=== PATIENT | male | born 1940 | race Caucasian/White ===

== ENCOUNTER 2017-12-02 17:16 | Inpatient (IN) ==
--- OUTSIDE RECORDS SUMMARY | 2017-12-02 20:15 | External Medical Summary ---
:1940 Author Organization eClinicalWorks Care Team Providers Name Role Phone Osbaldo Fernández Provider Role Unavailable Allergies, Adverse Reactions, Alerts Substance Reaction Event Type N.K.D.A. Info Not Available Non Drug Allergy Problems Problem Type Condition Code Onset Dates Condition Status Problem Diastasis recti M62.08 Active Problem Degenerative arthritis of knee, M17.0 Active bilateral Problem ED (erectile dysfunction) N52.9 Active Assessment Essential (primary) hypertension I10 Active Assessment Type 2 diabetes mellitus without E11.9 Active complications Problem Essential (primary) hypertension I10 Active Problem Hyperlipidemia E78.5 Active Problem Type 2 diabetes mellitus without E11.9 Active complications Problem Other malaise R53.81 Active Problem Gout M10.9 Active Problem Dietary counseling and surveillance Z71.3 Active Problem Nocturia R35.1 Active Medications Medication Code Code Instructions Start End Status Dosage System Date Date Viagra [facility] [address]-05 50 MG Orally take one Once a day tablet by mouth every day as needed Cyclobenzaprine [facility] [address]-95 10 MG Orally Jan 20, 1 tablet HCl Three times a 2013 day Aspirin [facility] [address]-04 81mg oral qD Dec 04, (one) 2005 qD Metformin HCl [facility] 23078988414 1000 Orally take 1 Twice a day tablet by mouth twice daily. Lisinopril [facility] 61329126195 20 TAKE 1 TABLET BY MOUTH EVERY DAY Allopurinol [facility] 12019439177 300 TAKE 1 TABLET BY MOUTH EVERY DAY Amaryl [facility] [address]-92 2 MG Orally BID TAKE 1/2 TABLET BY MOUTH TWICE A DAY Glimepiride [facility] [address]-45 2 TAKE ONE-HALF TABLET BY MOUTH TWICE A DAY Procedures Procedure Coding System Code Date HgB A1C CPT-4 15094 Sep 01, 2015 OFFICE VISITEST PT CPT-4 04697 Sep 01, 2015 BASIC CHEM 8 CPT-4 52723 Sep 01, 2015 Vital Signs Date/Time: Sep 01, 2015 Blood Pressure Systolic 125 mm Hg Height 68 in Weight 231 lbs BMI 35.12 Index Cardiac Monitoring Heart Rate 66 /min Blood Pressure Diastolic 78 mm Hg Results Name Result Date Reference Range Unit Abnormality Flag BASIC CHEM Summary Purpose eClinicalWorks Submission
--- OUTSIDE RECORDS SUMMARY | 2017-12-02 20:15 | External Medical Summary ---
[...] bilateral Problem ED (erectile dysfunction) N52.9 Active Problem Essential (primary) hypertension I10 Active Problem Hyperlipidemia E78.5 Active Problem Type 2 diabetes mellitus without E11.9 Active complications Problem Other malaise R53.81 Active Problem Gout M10.9 Active Problem Dietary counseling and surveillance Z71.3 Active Problem Nocturia R35.1 Active Assessment ED (erectile dysfunction) N52.9 Active Assessment Essential (primary) hypertension I10 Active Assessment Type 2 diabetes mellitus without E11.9 Active complications Medications Medication Code Code Instructions Start End Status Dosage System Date Date Amaryl [facility] [address]-55 2 MG Orally BID TAKE 1/2 TABLET BY MOUTH TWICE A DAY Lisinopril [facility] 81612319652 20 TAKE 1 TABLET BY MOUTH EVERY DAY Aspirin [facility] [address]-73 81mg oral qD Dec 04, (one) 2005 qD Viagra [facility] [address]-95 50 MG Orally take one Once a day tablet by mouth every day as needed Metformin HCl [facility] 02848124694 1000 Orally take 1 Twice a day tablet by mouth twice daily. Allopurinol [facility] 07782791522 300 TAKE 1 TABLET BY MOUTH EVERY DAY Cyclobenzaprine [facility] [address]-89 10 MG Orally Jan 20, tablet HCl Three times a 2013 day Procedures Procedure Coding System Code Date HgB A1C CPT-4 42841 Dec 02, 2015 OFFICE VISITEST PT CPT-4 88005 Dec 02, 2015 BASIC CHEM 8 CPT-4 03650 Dec 02, 2015 Vital Signs Date/Time: Dec 02, 2015 Blood Pressure Systolic 134 mm Hg Height 68 in Weight 231 lbs BMI 35.12 Index Cardiac Monitoring Heart Rate 68 /min Blood Pressure Diastolic 82 mm Hg Results Name Result Date Reference Range Unit Abnormality Flag BASIC CHEM ----CALCIUM 9.3 [id number] 8.7-10.3 MG/DL ----CO2 27 [id number] 23-31 MMOL/L ----CHLORIDE 100 [id number] 96-108 MMOL/L ----POTASSIUM 4.3 [id number] 3.3-5.1 MMOL/L ----GLUCOSE 122 [id number] 60-99 MG/DL H ----BUN 19 [id number] 8-23 MG/DL ----CREATININE 0.9 [id number] 0.5-1.2 MG/DL ----SODIUM 141 [id number] 133-145 MMOL/L HbA1C ----%A1C 6.2 [id number] 4.0-6.0 % H Summary Purpose eClinicalWorks Submission
--- OUTSIDE RECORDS SUMMARY | 2017-12-02 20:15 | External Medical Summary ---
:1940 Author Organization eClinicalWorks Care Team Providers Name Role Phone Osbaldo Fernández Provider Role Unavailable Allergies, Adverse Reactions, Alerts Substance Reaction Event Type N.K.D.A. 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 Problem Type 2 diabetes mellitus without E11.9 Active complications Assessment Memory loss R41.3 Active Problem Diastasis recti M62.08 Active Problem ED (erectile dysfunction) N52.9 Active Assessment Essential (primary) hypertension I10 Active Problem Degenerative arthritis of knee, M17.0 Active bilateral Assessment Other malaise R53.81 Active Problem Gout M10.9 Active Medications Medication Code Code Instructions Start End Status Dosage System Date Date Lisinopril [facility] 70818663532 20 TAKE 1 TABLET BY MOUTH EVERY DAY Amaryl [facility] [address]-24 2 MG Orally BID TAKE 1/2 TABLET BY MOUTH TWICE A DAY Allopurinol [facility] 15859210563 300 TAKE 1 TABLET BY MOUTH EVERY DAY Viagra [facility] [address]-67 100 MG Orally 1/2 TAB Once a day Aspirin [facility] [address]-53 81mg oral qD Dec 04 (one) 2005 qD Metformin HCl [facility] 60041026238 1000MG Orally TAKE ONE BID TABLET BY MOUTH TWICE DAILY Procedures Procedure Coding System Code Date OFFICE VISITEST PT CPT-4 26049 Jul 24, 2016 Vital Signs Date/Time: Jul 24, 2016 Blood Pressure Systolic 128 mm Hg Height 68 in Weight 234 lbs BMI 35.58 Index Cardiac Monitoring Heart Rate 66 /min Blood Pressure Diastolic 76 mm Hg Results No Known Results Summary Purpose eClinicalWorks Submission
--- OUTSIDE RECORDS SUMMARY | 2017-12-02 20:15 | External Medical Summary ---
:1940 Author Organization eClinicalWorks Care Team Providers Name Role Phone Osbaldo Fernández Provider Role Unavailable Allergies No Known Allergies Problems Problem Type Condition Code Onset Dates [...] diabetes mellitus without E11.9 Active complications Problem Diastasis recti M62.08 Active Problem ED (erectile dysfunction) N52.9 Active Problem Degenerative arthritis of knee, M17.0 Active bilateral Problem Gout M10.9 Active Medications No Known Medications Results No Known Results Summary Purpose eClinicalWorks Submission
--- OUTSIDE RECORDS SUMMARY | 2017-12-02 20:15 | External Medical Summary ---
:1940 Author Organization eClinicalWorks Care Team Providers Name Role Phone Osbaldo Fernández Provider Role Unavailable Allergies, Adverse Reactions, Alerts Substance Reaction Event Type N.K.D.A. Info Not Available Non Drug Allergy Problems Problem Type Condition Code Onset Dates Condition Status Problem Osteoarthrosis, unspecified whether 715.96 Active generalized or localized, lower leg Problem Other general symptoms 780.99 Active Problem Gout, unspecified 274.9 Active Assessment Bronchitis, not specified as acute 490 Active or chronic Problem Erectile dysfunction 607.84 Active Problem Diabetes mellitus without mention of 250.00 Active complication, type II or unspecified type, not stated as uncontrolled Problem Diastasis recti 728.84 Active Problem Dietary surveillance and counseling V65.3 Active Problem Nocturia 788.43 Active Problem Hypertension, Unspecified 401.9 Active Problem Hyperlipidemia, Other and 272.4 Active unspecified Medications Medication Code Code Instructions Start End Status Dosage System Date Date Aspirin [facility] [address]-37 81mg oral qD Dec 04, (one) 2005 qD Promethazine-Codei [facility] [address]-85 6.25-10 MG/5ML February 23- tsp ne Orally every 6 2014 hrs Lisinopril [facility] 38770527196 20 MG TAKE 1 TABLET BY MOUTH EVERY DAY Amaryl [facility] [address]-19 2 MG Orally BID TAKE 1/2 TABLET BY MOUTH TWICE A DAY Zithromax Z-Peter [facility] [address]-93 250 MG Orally February 2 tablet Once a day 2014 on the first day, then 1 tablet daily for 4 days Viagra [facility] [address]-71 50 MG Orally take one Once a day tablet by mouth every day as needed Metformin HCl [facility] 08213468482 1000 MG TAKE 1 TABLET BY MOUTH TWICE A DAY Cyclobenzaprine [facility] [address]-96 10 MG Orally Jan 20, tablet HCl Three times a 2013 day Allopurinol [facility] 94273137725 300 MG TAKE 1 TABLET BY MOUTH EVERY DAY Glimepiride [facility] [address]-06 2 TAKE ONE-HALF TABLET BY MOUTH TWICE A DAY Procedures Procedure Coding System Code Date OFFICE VISITEST PT CPT-4 89117 February 28, 2015 Vital Signs Date/Time: February 28, 2015 Blood Pressure Systolic 126 mm Hg Height 68 in Weight 233 lbs BMI 35.42 Index Cardiac Monitoring Heart Rate 72 /min Blood Pressure Diastolic 86 mm Hg Results No Known Results Summary Purpose eClinicalWorks Submission
--- OUTSIDE RECORDS SUMMARY | 2017-12-02 20:15 | External Medical Summary | Continuity of Care Document ---
:1940 Author Organization [facility] Allergies Active Description Code Type Severity Reaction Onset Reported/ Identified Relationship Clinical to Patient Status Yes No Known No Drug Unknown N/A 09/05/2009 Drug Known Aller Intolerances Drug gy Intol eranc es Yes No Known No Drug Unknown N/A 09/06/2009 Intolerances Known Aller Intol gy eranc es Yes No Known No Drug Unknown N/A 01/01/2017 Allergies Known Aller Aller gy gies Medications There is no data. Problems There is no data. Procedures There is no data. Results There is no data. Encounters ACCT Visit Discharge Status Pt. Type Provider Facility Loc./Unit Complaint No. Date/Time [id number] 01/01/2017 01/01/2017 DIS Emergency [facility] [id number] 13:11:00 16:30:00 , [facility]
--- OUTSIDE RECORDS SUMMARY | 2017-12-02 20:15 | External Medical Summary ---
:1940 Author Organization eClinicalWorks Care Team Providers Name Role Phone Osbaldo Fernández Provider Role Unavailable Allergies, Adverse Reactions, Alerts Substance Reaction Event Type N.K.D.A. 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 Problem Depression F32.9 Active Problem Hyperlipidemia E78.5 Active Problem Dietary counseling and surveillance Z71.3 Active Problem Type 2 diabetes mellitus without E11.9 Active complications Problem Essential (primary) hypertension I10 Active Assessment Other malaise R53.81 Active Problem Diastasis recti M62.08 Active Assessment Anxiety F41.9 Active Problem ED (erectile dysfunction) N52.9 Active Assessment Depression F32.9 Active Problem Degenerative arthritis of knee, M17.0 Active bilateral Medications Medication Code Code Instructions Start End Status Dosage System Date Date Lisinopril [facility] 04665586194 20 TAKE 1 TABLET BY MOUTH EVERY DAY Amaryl [facility] [address]-02 2 MG Orally BID TAKE 1/2 TABLET BY MOUTH TWICE A DAY Sertraline HCl [facility] [address]-95 50 MG Orally Jun 25, 1 tablet Once a day 2015 Allopurinol [facility] 91637180051 300 TAKE 1 TABLET BY MOUTH EVERY DAY Viagra [facility] [address]-32 100 MG Orally 1/2 TAB Once a day Aspirin [facility] [address]-11 81mg oral qD Dec 04 (one) 2005 qD Metformin HCl [facility] 60409308857 1000MG Orally TAKE ONE BID TABLET BY MOUTH TWICE DAILY Procedures Procedure Coding System Code Date OFFICE VISITEST PT CPT-4 21653 Jun 25, 2016 Vital Signs Date/Time: Jun 25, 2016 Blood Pressure Systolic 130 mm Hg Height 68 in Weight 234 lbs BMI 35.58 Index Cardiac Monitoring Heart Rate 68 /min Blood Pressure Diastolic 80 mm Hg Results No Known Results Summary Purpose eClinicalWorks Submission
--- OUTSIDE RECORDS SUMMARY | 2017-12-02 20:15 | External Medical Summary ---
:1940 [facility] Care Team Providers Name Role Phone Osbaldo Fernández Provider Role Unavailable Allergies, Adverse Reactions, Alerts Substance Reaction Event Type N.K.D.A. Info Not Available Non Drug Allergy Problems Problem Type Condition ICD-9 Code Onset Dates Condition Status Problem Osteoarthrosis, unspecified 715.96 Active whether generalized or localized, lower leg Problem Other general symptoms 780.99 Active Problem Gout, unspecified 274.9 Active Problem Erectile dysfunction 607.84 Active Assessment Diastasis recti 728.84 Active Problem Diabetes mellitus without 250.00 Active mention of complication, type II or unspecified type, not stated as uncontrolled Problem Diastasis recti 728.84 Active Problem Dietary surveillance and V65.3 Active counseling Problem Nocturia 788.43 Active Problem Hypertension, Unspecified 401.9 Active Problem Hyperlipidemia, Other and 272.4 Active unspecified Assessment Gout, unspecified 274.9 Active Assessment Other general symptoms 780.99 Active Assessment Erectile dysfunction 607.84 Active Assessment Osteoarthrosis, unspecified 715.96 Active whether generalized or localized, lower leg Assessment Hyperlipidemia, Other and 272.4 Active unspecified Assessment Hypertension, Unspecified 401.9 Active Assessment Nocturia 788.43 Active Assessment Diabetes mellitus without 250.00 Active mention of complication, type II or unspecified type, not stated as uncontrolled Assessment Dietary surveillance and V65.3 Active counseling Assessment Adult Wellness Exam V70.0 Active Medications Medication Code Code Instructions Start End Status Dosage System Date Date Lisinopril [facility] 27867167835 20 MG TAKE 1 TABLET BY MOUTH EVERY DAY Aspirin [facility] [address]-28 81mg oral qD Dec 04, () 2005 qD Cyclobenzaprine [facility] [address]-52 10 MG Orally Jan 20, tablet HCl Three times a 2013 day Allopurinol [facility] 84057006739 300 MG TAKE 1 TABLET BY MOUTH EVERY DAY Amaryl [facility] [address]-07 2 MG Orally BID TAKE 1/2 TABLET BY MOUTH TWICE A DAY Glimepiride [facility] [address]-22 2 TAKE ONE-HALF TABLET BY MOUTH TWICE A DAY Viagra [facility] [address]-02 50 MG Orally take one Once a day tablet by mouth every day as needed Viagra [facility] [address]-40 50 MG TAKE ONE TABLET BY MOUTH EVERY DAY NEEDED Metformin HCl [facility] 05059119762 1000 MG TAKE 1 TABLET BY MOUTH TWICE A DAY Procedures Procedure Coding System Code Date URIC ACID CPT-4 15109 February 14, 2015 PREV MED SEREST 65 CPT-4 62762 February 14, 2015 COMP PROFILE CPT-4 55602 February 14, 2015 HgB A1C CPT-4 82225 February 14, 2015 CBC CPT-4 47812 February 14, 2015 T4 CPT-4 45780 February 14, 2015 URINALYSIS CPT-4 70333 February 14, 2015 TSH CPT-4 35258 February 14, 2015 CREATININE; OTHER SOURCE CPT-4 82053 February 14, 2015 MICROALBUMIN URINE CPT-4 34280 February 14, 2015 PSA,TOTAL CPT-4 20235 February 14, 2015 LIPID PROFILE CPT-4 13174 February 14, 2015 Vital Signs Date/Time: February 14, 2015 Blood Pressure Systolic 125 mm Hg Height 68 in Weight 233 lbs BMI 35.42 Index Cardiac Monitoring Heart Rate 66 /min Blood Pressure Diastolic 75 mm Hg Results No Known Results Summary Purpose eClinicalWorks Submission
--- NOTE | 2017-12-02 20:16 | Emergency Department Report ---
Medical Clearance HPI - General Chief complaint: Medical Clearance Stated complaint: [facility] clearance Time Seen by Provider: 12/02/17 20:12 Source: old records reviewed Mode of arrival: ambulatory Limitations: no limitations - History of Present Illness HPI Narrative: Pt presents for medical clearance for admission to [facility]. Staff report pt has been increasingly confused over the last several weeks and pts behavior has become erratic complaint: medical clearance requested Onset (ago): week(s) Reason for Medical Clearance: medical condition, psychiatric condition Alleged Intoxication: No Associated Symptoms: denies other symptoms Treatments Prior to Arrival: none Home medications: Home Medications Medication Instructions Recorded Confirmed Allopurinol [Zyloprim] 300 mg PO DAILY 12/02/17 12/02/17 Aspirin *EC* [Ecotrin] 81 mg PO DAILY 12/02/17 12/02/17 Donepezil [Aricept] 5 mg PO DAILY 12/02/17 12/02/17 Ibuprofen 200 mg PO Q6HR 12/02/17 12/02/17 Lisinopril [Prinivil] 20 mg PO DAILY 12/02/17 12/02/17 Metformin HCl [Metformin HCl] 1,000 mg PO BID 12/02/17 12/02/17 Allergies/Adverse reactions: Allergies Allergy/AdvReac Type Severity Reaction Status Date / Time No Known Allergies Allergy Verified 12/02/17 19:59 Review of Systems Limitations: ROS unobtainable due to patient's medical condition PFS Patient Stated Medical History Dementia Yes Hypertension Yes Diabetes Mellitus Type 2 Yes Physical Exam - Limitations Limitations: altered mental status - General General appearance: alert - Normal Exams: Head:: Normocephalic without trauma Eyes:: Pupils are PERRLA w/ EOMI Neck:: Full range of motion, without adenopathy Chest/Respirations:: Clear all corbett, with good airflow, and symmetry bilaterally Cardiovascular:: Regular rate and rhythm, without murmur or gallop, Pulses 2+ all extremities, capillary refill, <2 seconds all extremities Abdomen:: Bowel sounds positive, soft, non-tender, non-distended Musculoskeletal:: No tenderness, or deformity noted, good range of motion, all extremities Integumentary:: No rashes Neurological:: Patient is alert (oreiented to self only), cranial nerves, motor/ sensory/cerebellar, exams w/o gross deficits, to observation Psychiatric:: Patient exhibits, appropriate attention, emotion and affect ( cooperative with care) Course Vital Signs Temperature 97.8 F 12/02/17 19:45 Pulse Rate 85 12/02/17 19:45 Respiratory Rate 20 12/02/17 19:45 Blood Pressure 162/85 H 12/02/17 19:45 Pulse Oximetry 95 12/02/17 19:45 Temperature 97.8 F 12/08/17 08:00 Pulse Rate 79 12/08/17 08:00 Respiratory Rate 20 12/08/17 08:00 Blood Pressure 121/67 12/08/17 08:00 Pulse Oximetry 98 12/08/17 08:00 Medical Clearance - MDM Narrative Medical decision making narrative: Labs reviewed. [facility] - Differential Diagnosis Likely: urinary tract infection (depression, acute psychosis, anxiety) - Lab Data Attestation: I reviewed the patient's lab results. Result diagrams: 12/02/17 20:13 12/02/17 20:13 Lab Results 12/02/17 12/02/17 12/02/17 Range/Units 20:13 20:13 21:03 WBC 7.4 (4.5-11.0) T/MM3 RBC 4.44 L (4.50-5.90) M/MM3 Hgb 13.3 L (13.5-17.5) GM/DL Hct 40.1 L (41-53) % MCV 90.3 (80-100) UM3 MCH 30.0 (26-34) UUG MCHC 33.2 (31-37) GM/DL RDW Std Deviation 45.0 (36.9-50.2) FL Plt Count 230 (130-400) T/MM3 MPV 11.7 (9.4-12.4) UM3 Immature Gran % (Auto) 0.0 (0.0-0.5) % Neut % (Auto) 71.9 H (33-66) % Lymph % (Auto) 17.6 L (23-45) % [place] % (Auto) 7.4 (0-9.0) % Eos % (Auto) 2.8 (0-4) % Baso % (Auto) 0.3 (0-2) % Neut # (Auto) 5.3 (1.8-7.7) T/MM3 Lymph # (Auto) 1.3 (1-4.8) T/MM3 [place] # (Auto) 0.6 (0-0.8) T/MM3 Eos # (Auto) 0.2 (0-0.5) T/MM3 Baso # (Auto) 0.0 (0-0.2) T/MM3 Abs Immat Gran (auto) 0.00 (0.00-0.03) T/MM3 Turbidity < 20 (0-20) Sodium 140 (134-144) MEQ/L Potassium 4.3 (3.6-5) MEQ/L Chloride 100 (98-107) MEQ/L Carbon Dioxide 28 (22-30) MEQ/L Anion Gap 12 (5-15) MEQ/L BUN 20.0 (9-20) MG/DL Creatinine 1.0 (0.8-1.5) MG/DL GFR Calculation 73 BUN/Creatinine Ratio 20 (6-26) RATIO Glucose 203 H (75-110) MG/DL Calculated Osmolality 278 (261-280) MOSM/KG Calcium 9.1 (8.4-10.2) MG/DL Total Bilirubin 0.30 (0.20-1.30) MG/DL Icterus Index < 2 (0-7) AST 16 L (17-59) U/L ALT 25 (21-72) U/L Alkaline Phosphatase 150 H (38-126) U/L Total Protein 7.0 (6.3-8.2) G/DL Albumin 4.1 (3.5-5.0) G/DL Globulin 2.9 (2.4-3.6) G/DL Albumin/Globulin Ratio 1.4 (1.1-2.2) RATIO Specimen Hemolysis < 15 (0-25) Ur Collection Type Urine, catheter Urine Color Yellow (YELLOW) Urine Clarity Clear Urine pH 7.0 (5.0-8.0) Ur Specific [place] 1.010 L (1.015-1.025) Urine Protein Negative (NEGATIVE) Urine Glucose (UA) Negative (NEGATIVE) Urine Ketones Negative (NEGATIVE) Urine Occult Blood Negative (NEGATIVE) Urine Nitrate Negative (NEGATIVE) Urine Bilirubin Negative (NEGATIVE) Urine Urobilinogen 0.2 (NORMAL) EU/DL Ur Leukocyte Esterase Negative (NEGATIVE) Urinalysis Comment Microscopic not ind. Disposition Clinical Impression: geriatric medication evaluation, Dementia with behavioral disturbance Disposition: 67 To [facility] Condition: Stable - Seen By: midlevel
[2017-12-02] MEDS ORDERED: HALOPERIDOL 5 MG/ML INJECTION IM PRN (21:48)
[2017-12-02] MEDS ORDERED: HALOPERIDOL 0.5 MG TABLET PO PRN (21:48)
[2017-12-02] MEDS ORDERED: LORazepam 0.5 MG TABLET PO PRN (21:48)
[2017-12-03 01:14] VITALS: BMI 34.4
[2017-12-03] MEDS ORDERED: DONEPEZIL 5 MG TABLET PO SCH (09:00)
[2017-12-03] MEDS ORDERED: GLUCOSE ORAL GEL 40% 37.5gm PO PRN (09:29)
--- NOTE | 2017-12-03 09:41 | History & Physical Report ---
History of Present Illness Date: 12/03/17 Chief complaint: dementia with behavioral disorders, failure of self care HPI: Mr. Trent Pelayo is a very pleasant 77-year-old male resident from [facility]. He presented to [facility] ED on 12/02/16 for evaluation of cognitive decline, failure of self care, and increased withdrawal and isolation over the past few months. Staff at the facility also reportedly addressed concerns about his behaviors becoming more erratic. Due to his dementia, history is limited. Extensive review of his prior medical records was performed.Upon arrival in the ED, he was medically stable. Labs were unremarkable. He was admitted to [facility] for further psychiatric evaluation and treatment. Hospitalist service was consulted for medical management as he has a history of diabetes, hypertension, gout and degenerative joint disease. He is seen this morning in his room, while resting in his bed. He denies any concerns or complaints including no chest pain, shortness of breath, abdominal pain, nausea, vomiting, diarrhea, dysuria or pain. He states that he did not sleep very well because "everyone was up all night". Review of Systems ROS unobtainable: due to mental status (dementia) All systems PM: 10-point ROS was reviewed, no additional remarkable complaints except - Constitutional Constitutional: Absent: chills, fever(s), lethargy, weakness - EENMT Eyes: Absent: diplopia, loss of vision Ears: Absent: ear pain Balance: Absent: falling to one side Nose: Absent: nosebleeds Mouth/Throat: Absent: sore throat, changes in swallowing - Cardiovascular Cardiovascular: Absent: chest pain, palpitations, syncope, dyspnea on exertion, edema Vascular: Absent: pallor of an extermity, pedal edema - Respiratory Respiratory: Absent: cough, dyspnea, hemoptysis, dyspnea on exertion, wheezing, pain on inspiration - Gastrointestinal Gastrointestinal: Absent: abdominal pain, constipation, diarrhea, melena, nausea , vomiting - Genitourinary Genitourinary: Absent: dysuria, flank pain, hematuria - Musculoskeletal Musculoskeletal: Absent: abnormal gait, back pain, deformity - Integumentary/Breasts Integumentary: Absent: lesions, rash - Neurological Neurological: Present: memory loss. Absent: abnormal gait, convulsions, dizziness, focal weakness - Psychiatric Psychiatric: Present: behavioral changes. Absent: anxiety, hallucinations - Endocrine Endocrine: Absent: heat intolerance, palpitations - Hematologic/Lymphatic Hematologic/Lymphatic: Absent: easy bruising - Allergic/Immunologic Allergic/Immunologic: Absent: seasonal rhinorrhea Past Medical History Patient Stated Medical History Dementia. Hypertension. Diabetes Mellitus Type 2. Gout. Degenerative joint disease. Obesity. Surgical History: 1. Tonsillectomy - as a child. 2. Appendectomy - as a young adult. 3. Left hip replacement - 2008, Dr. Zuleta. 4. Right hip replacement - 2009, Dr. Zuleta. 5. Colonscopy - 2007, due in 2018. Family History Updates: Limited due to patient's dementia. He reports his mother had a history of diabetes and states that his father was healthy. - Social History Smoking status: Former smoker (quit 40 years ago) Substance use type: does not use Alcohol intake frequency: holidays/special occasions only Last drink: unknown Housing: other ([facility]) Household members: none service: Yes ([employer]) Current occupational status: retired Does patient use chewing tobacco?: No Current residence: [facility] Social history: PCP - Dr. Osbaldo Fernández. Medications Home Medications Medication Instructions Recorded Confirmed Type Allopurinol [Zyloprim] 300 mg PO DAILY 12/02/17 12/02/17 History Aspirin *EC* [Ecotrin] 81 mg PO DAILY 12/02/17 12/02/17 History Donepezil [Aricept] 5 mg PO DAILY 12/02/17 12/02/17 History Ibuprofen 200 mg PO Q6HR 12/02/17 12/02/17 History Lisinopril [Prinivil] 20 mg PO DAILY 12/02/17 12/02/17 History Metformin HCl [Metformin HCl] 1,000 mg PO BID 12/02/17 12/02/17 History Allergies Allergy/AdvReac Type Severity Reaction Status Date / Time No Known Allergies Allergy Verified 12/02/17 19:59 Exam Vital Signs: Temperature 97.5 F 12/03/17 08:00 Pulse Rate 69 12/03/17 08:00 Respiratory Rate 18 12/03/17 08:00 Blood Pressure 145/70 H 12/03/17 08:00 Pulse Oximetry 100 12/03/17 08:00 Height/Weight/BMI: Height 5 ft 5 in Weight 412 lb 4.231 oz Body Mass Index 34.4 Comments: resting in bed, awake; very pleasant with bright affect; word finding difficulty noted. - Constitutional Present: no acute distress, well nourished, well developed, obese, cooperative - Routine HEENT Exam Head: Present: normocephalic, atraumatic Eye: Present: PERRL. Absent: conjunctival icterus ENT: Present: mucous membranes moist, oropharynx clear - Routine Neck Exam Present: supple, full ROM, trachea midline - Routine Chest/Breast/Axilla Exam Chest wall: Absent: pacemaker - Routine Respiratory Exam Present: CTA bilaterally. Absent: rhonchi, stridor, wheezes, crackles - Routine Cardiovascular Exam Present: RRR, S1, S2, no murmur - Routine Abdominal Exam Present: soft, normoactive bowel sounds, non distended, non tender - Routine Extremities Exam Present: no edema, non tender, full ROM, pulses intact Comments: ambulates easily without assistance. - Routine Back/Spine/Pelvis Exam Back/Spine: Present: full ROM. Absent: vertebral tenderness - Routine Skin Exam Present: intact, dry, warm. Absent: jaundice Comments: afebrile. - Routine Neurological Exam Present: alert (orienated to person only), moving all extremities, hearing grossly intact speech is slowed with some word finding difficulties. - Routine Psychiatric Exam Present: normal affect, cooperative. Absent: auditory hallucinations, visual hallucinations Results - Labs CBC & Chem 7: 12/02/17 20:13 12/02/17 20:13 Assessment and Plan (1) Dementia with behavioral disturbance Current visit: Yes Status: Acute Assessment and Plan: Assessment: Dementia with behavioral disturbance and failure to perform self care. Hypertension. Diabetes Mellitus Type 2. Gout. Degenerative joint disease. Obesity. Plan - 12/03/17 (Admission) Agree with admission to [facility] for psychiatric evaluation and treatment. Hospitalist service consulted for medical management. Provide safe and supportive cares with PRN medications as indicated per Dr. Tamez and team. Continue home medications. Med reconciliation noted to be missing home Amaryl. Will start Amaryl 1mg po BID for treatment of his DM. A1c in 09/2017 was elevated at 7.2 per prior records. Monitor BGMs closely. Sliding scale insulin PRN as indicated and monitor closely for hypoglycemia. Continue home lisinopril for hypertension - blood pressure controlled and will continue to monitor. Labs obtained on admission revealed mild amenia - hgb 13.3. B12 and folate pending. Recommend completing admission work up including CXR, CT head, TSH, UA and prealbumin. Will monitor labs periodically throughout admission. Upon discharge, patient's care will be returned to PCP, Dr. Osbaldo Fernández. Resuscitation Status: Full Code - Time spent with patient Time with patient PN: 70 minutes - Physician Narrative Physician: Laura Young MD Narrative: Date: 12/03/17 Time: 1934 I have independently evaluated and examined this patient. I reviewed the chart, the patient's history, and the NUCLEAR INSTRUCTOR/PA's documented findings as above. We discussed and formulated the assessment and plan as above with additions as below: Mr. Pelayo was seen in the day room after dinner. He denied concerns; did not remember who his doctor was or report any chronic medical conditions. He denied dyspnea, pain, or lightheadedness. Respirations are nonlabored and breath sounds clear Regular cardiac rhythm, S1-S2 EOMI, facial structure symmetric, tongue midline [employer] Counter Assistant symmetric/strong, no drift of the upper extremities, raises each leg off the floor independently and hold against gentle resistance Normal motor tone, no tremors Sensation intact to light touch 4 extremities Laboratory data reviewed-unremarkable other than hyperglycemia consistent with known diagnosis of diabetes and minor acidic anemia. Renal function good and permits continued use of metformin. Agree with plans outlined above by Aislinn. Thank you for allowing us to participate in the care of this patient. Hospital Course Summary Disclaimer: The visit summary below is not to be considered part of the above Progress Note. Hospital Course: Plan - 12/03/17 (Admission) Agree with admission to [facility] for psychiatric evaluation and treatment. Hospitalist service consulted for medical management. Provide safe and supportive cares with PRN medications as indicated per Dr. Tamez and team. Continue home medications. Med reconciliation noted to be missing home Amaryl. Will start Amaryl 1mg po BID for treatment of his DM. A1c in 09/2017 was elevated at 7.2 per prior records. Monitor BGMs closely. Sliding scale insulin PRN as indicated and monitor closely for hypoglycemia. Continue home lisinopril for hypertension - blood pressure controlled and will continue to monitor. Labs obtained on admission revealed mild amenia - hgb 13.3. B12 and folate pending. Recommend completing admission work up including CXR, CT head, TSH, UA and prealbumin. Will monitor labs periodically throughout admission. Upon discharge, patient's care will be returned to PCP, Dr. Osbaldo Fernández.
[2017-12-03] MEDS ORDERED: GLIMEPIRIDE 2 MG TABLET PO SCH (09:45)
[2017-12-03] MEDS: IBUPROFEN 200 MG TABLET PO SCH ×4 (10:49→20:47)
[2017-12-03] MEDS: ALLOPURINOL 300 MG TABLET PO SCH (10:50)
[2017-12-03] MEDS: METFORMIN 1,000 MG TABLET PO SCH ×2 (10:51→17:46)
[2017-12-03] MEDS: ASPIRIN *EC* 81 MG TABLET PO SCH (10:52)
[2017-12-03] MEDS: LISINOPRIL 20 MG TABLET PO SCH (10:52)
[2017-12-03] MEDS: GLIMEPIRIDE 1 MG TABLET PO SCH ×2 (10:54→17:46)
--- NOTE | 2017-12-03 17:55 | 24 Hour Neuropsychiatic Eval ---
Date of Admission: 12/02/17 21:48 Chief complaint: Self-care failure History of Present Illness: Patient is a 77-year-old male who was admitted to [facility] on with the consent of his DPOA, Arti Rodriguez. Patient has been living in an [place] apartment at [facility] and has not been taking his medications, performing hygienic cares, etc. and thus he was admitted for self-care failure. On interview, patient was very pleasant but oriented to self only, and had significant word-finding difficulties with some expressive aphasia. He was not oriented to the situation or able to provide a reliable history. He did say he' s "had too many things on his mind" but described his mood as happy most of the time. He feels that he is eating well, sleeping well, etc. He is not able to tell me anything about his own medial history. 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 He does voluntarily report several symptoms of PTSD (hypervigilance, flashbacks, nightmares) in the past but feels that he is managing better now. Patient denies any SI, HI or AVH. No paranoia evident. Patient denies any past psychiatric history. He reports stopping cigarettes a long time ago and reports drinking heavily at one point in his life, but not recently. The validity of this is not clear. He denies any other drug use. SLUMS was 05/24 upon admission. Notes: [facility] made phone call to patient's DPOA-HC (Arti Rodriguez). She was able to provide some information based on the 20 year relationship she and her have had with the patient. She said the patient's daughter, Sherry, was his DPOA-HC but she mailed a letter to staff at [facility] in [place] where pt. had been residing in [facility]. She stated she no longer wanted to serve as his DPOA-HC. Arti Rodriguez knew patient needed help so she agreed to be first agent and her is second agent on DPOA-HC. She stated that because of the severity of his memory problems and because of his age, she wanted to sign the DNR on behalf of the patient. She has some paperwork with personal history. She knows pt. was born in [place]. He was for 6 yeas to his first and he had his only child during that time. After their divorce, he again for 30+ years and she is now . Pt. graduated from high school and also has a business degree from [employer]. 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 Arti has never known the patient to be involved in any rastafarian activities. She also reports she has never known him to have any problems with abusing drugs or alcohol. She reports that once she became his legal union representative, she found unopened mail in his mailbox from months back. He had been living in an [place] apt. at [facility] in [place] for over one year but was at risk of being evicted because of lack of payment for his rent. He has never had any past psychiatric treatment. 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 Dementia: Memory Impairment, Aphasia, Poor Executive Functioning Reviewed: Home Medications, Allergies, Current Lab Data, Imaging Reports, Nursing Notes [facility] Patient Stated Medical History Dementia Yes Hypertension Yes Diabetes Mellitus Type 2 Yes Other Musculoskeletal Yes: gout Surgical History: 1. Tonsillectomy - as a child. 2. Appendectomy - as a young adult. 3. Left hip replacement - 2008, Dr. Zuleta. 4. Right hip replacement - 2009, Dr. Zuleta. 5. Colonscopy - 2007, due in 2018. Family History: Not able to obtain reliable family history from patient. 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 Does patient use chewing tobacco?: No Current residence: [facility] Social history: Strengths: very pleasant personality, denies feeling depressed, has supportive DPOA, possible VA benefits Review of Systems All systems: reviewed and no additional remarkable complaints except as stated - Constitutional Constitutional: Present: as per HPI - EENMT Eyes: Present: other (poor vision - patient feels he needs an eye exam) Ears: Absent: ear pain Balance: Absent: falling to one side Nose: Absent: nosebleeds Mouth/Throat: Absent: sore throat, changes in swallowing - Cardiovascular Vascular: Absent: pallor of an extermity, pedal edema - Genitourinary Genitourinary: Present: difficulty urinating (sometimes per patient). Absent: dysuria, flank pain, hematuria - Neurological Neurological: Present: memory loss - Psychiatric Psychiatric: Present: as per HPI, other (word-finding difficulty) Mental Status Exam Vitals: Last Vital Signs Temp 97.6 F 12/03/17 15:39 Pulse 69 12/03/17 15:39 Resp 16 12/03/17 15:39 BP 116/65 12/03/17 15:39 Pulse Ox 98 12/03/17 15:39 Height: 1.65 m Weight: 96 kg - Mental Status Exam Muscle Strength/Tone: Normal Dressing: Casual Grooming: Fair Attitude: Cooperative Motor Activity: Retardation Eye Contact: Good Speech: Slowed Volume: Normal Rhythm: Other (Expressive aphasia, word-finding diffiulties) Sensory: Alert Orientation: Disoriented to time, Disoriented to place, Disoriented to situation , Oriented to person Mood: Euthymic Affect: Bright, Relaxed Rate of Thoughts: Delayed Thought Organization: Confused Associations: Illogical Abstract Reasoning: Impaired, concrete Thought Content: Normal Perception/Psychotic: Perception Normal Language: Naming Impaired Fund of Knowledge: Poor fund of knowledge Memory: Poor-immediate, Poor-recent, Poor-remote Suicidal Ideation: Denies Homicidal Ideation: Denies Insight: Impaired Judgement: Impaired Impulse Control: Good - Laboratory Result Diagrams: 12/02/17 20:13 12/02/17 20:13 Laboratory Results - last 24 hr 12/03/17 12/03/17 12/03/17 05:51 10:35 14:20 Glucometer 161 246 114 12/03/17 17:04 Glucometer 80 Assessment and Plan (1) Major neurocognitive disorder Current visit: Yes Status: Acute (2) Self-care deficit for medication management Current visit: Yes Status: Acute (3) Hypertension Current visit: Yes Status: Acute (4) DMII (diabetes mellitus, type 2) Qualifiers: Diabetes mellitus complication status: with ophthalmic complications Current visit: Yes Status: Acute (5) Obesity Current visit: Yes Status: Acute (6) Degenerative joint disease Current visit: Yes Status: Acute Admit to [facility] for evaluation and stabilization; maintain safety and elopement precautions. Standard labs upon admission: CBC, CMP, TSH, UA, Vitamin B12 and folate levels. Will obtain further collateral information from patient's DPOA and discuss any recommendations for medication management. Monitor mood and behavior on the unit.
[2017-12-03] MEDS: DONEPEZIL 5 MG TABLET PO SCH (20:47)
[2017-12-04] MEDS: IBUPROFEN 200 MG TABLET PO SCH ×5 (04:18→20:22)
[2017-12-04] MEDS: GLIMEPIRIDE 1 MG TABLET PO SCH ×2 (08:11→17:55)
[2017-12-04] MEDS: LISINOPRIL 20 MG TABLET PO SCH (08:12)
[2017-12-04] MEDS: ALLOPURINOL 300 MG TABLET PO SCH (08:12)
[2017-12-04] MEDS: ASPIRIN *EC* 81 MG TABLET PO SCH (08:12)
[2017-12-04] MEDS: METFORMIN 1,000 MG TABLET PO SCH ×2 (08:12→17:55)
--- NOTE | 2017-12-04 16:00 | Neuropsych Progress Note ---
[facility] Subjective Date: 12/04/17 - Sujective/Severity of Illness Medications: Allopurinol (Zyloprim) 300 mg PO DAILY [facility] Last Admin: 12/04/17 08:12 Dose: 300 mg Aspirin (Ecotrin) 81 mg PO DAILY [facility] Last Admin: 12/04/17 08:12 Dose: 81 mg Donepezil HCl (Aricept) 5 mg PO HS [facility] Last Admin: 12/03/17 20:47 Dose: 5 mg Glimepiride (Amaryl) 1 mg PO BIDWM [facility] Last Admin: 12/04/17 08:11 Dose: 1 mg Glucose (Glutose 15) 37.5 gm PO PRN PRN PRN Reason: Hypoglycemia Haloperidol (Haldol) 0.5 mg PO Q6H PRN PRN Reason: Extreme agitation Haloperidol Lactate (Haldol) 0.5 mg IM Q6H PRN PRN Reason: Extreme agitation Ibuprofen (Motrin) 200 mg PO Q6HR [facility] Last Admin: 12/04/17 08:18 Dose: Not Given Insulin Aspart (Novolog) 1 - 5 unit SQ SS PRN; Protocol PRN Reason: Hyperglycemia Lisinopril (Prinivil) 20 mg PO DAILY [facility] Last Admin: 12/04/17 08:12 Dose: 20 mg Lorazepam (Ativan) 0.5 mg PO Q6H PRN PRN Reason: Extreme agitation Lorazepam (Ativan Inj) 0.5 mg IM Q6H PRN PRN Reason: Extreme agitation Metformin HCl (Glucophage) 1,000 mg PO BIDBS [facility] Last Admin: 12/04/17 08:12 Dose: 1,000 mg Subjective: Patient seen and chart reviewed. Case discussed with treatment team. On interview, patient is quite pleasant and seems to be in a good mood. He continues to struggle with expressive aphasia and significant word-finding difficulty. Patient denies any SI, HI or AVH. Patient reports that he is feeling well physically. Nursing staff report patient has been pleasant, with no significant behavioral difficulties in the past 24 hours. He has been adherent with his medications. Patient slept 5.25 hours overnight. VSS. Patient is eating well. Psychotropic PRNs required in the past 24 hours: none. Start Time: 09:00 Stop Time: 09:20 Mental Status Exam Vitals: Last Vital Signs Temp 97.0 F 12/04/17 08:00 Pulse 99 12/04/17 08:00 Resp 16 12/04/17 08:00 BP 147/81 H 12/04/17 08:00 Pulse Ox 98 12/04/17 08:00 Height: 1.65 m Weight: 96 kg - Mental Status Exam Muscle Strength/Tone: Normal Dressing: Casual Grooming: Fair Attitude: Cooperative Motor Activity: Retardation Eye Contact: Good Speech: Slowed Volume: Normal Rhythm: Other (Expressive aphasia, word-finding diffiulties) Orientation: Disoriented to time, Disoriented to place, Disoriented to situation , Oriented to person Mood: Euthymic Affect: Relaxed Rate of Thoughts: Delayed Thought Organization: Confused Associations: Illogical Abstract Reasoning: Impaired, concrete Thought Content: Normal Perception/Psychotic: Perception Normal Language: Naming Impaired Fund of Knowledge: Poor fund of knowledge Memory: Poor-immediate, Poor-recent, Poor-remote Suicidal Ideation: Denies Homicidal Ideation: Denies Insight: Impaired Judgement: Impaired Impulse Control: Good - Laboratory Result Diagrams: 12/02/17 20:13 12/02/17 20:13 Laboratory Results - last 24 hr 12/03/17 12/03/17 12/04/17 17:04 20:15 06:19 Glucometer 80 127 100 Prealbumin TSH 12/04/17 12/04/17 12/04/17 07:18 10:06 14:11 Glucometer 215 158 Prealbumin 17.2 L TSH 1.35 Assessment and Plan (1) Major neurocognitive disorder Current visit: Yes Status: Acute (2) Self-care deficit for medication management Current visit: Yes Status: Acute (3) Hypertension Current visit: Yes Status: Acute (4) DMII (diabetes mellitus, type 2) Qualifiers: Diabetes mellitus complication status: with ophthalmic complications Current visit: Yes Status: Acute (5) Obesity Current visit: Yes Status: Acute (6) Degenerative joint disease Current visit: Yes Status: Acute Continue current care; patient requires significant assistance with cares, med compliance, etc. Would like to ensure that BS have stabilized on current regimen. Will plan to discuss use of Namenda, Aricept with DPOA though memory enhancers not shown to be beneficial if dementia is solely vascular. SW looking into placement options for necessary level of care with DPOA. Hospital Course Summary Disclaimer: The visit summary below is not to be considered part of the above Progress Note. Hospital Course: Plan - 1/9/18 (Admission) Agree with admission to [facility] for psychiatric evaluation and treatment. Hospitalist service consulted for medical management. Provide safe and supportive cares with PRN medications as indicated per Dr. Tamez and team. Continue home medications. Med reconciliation noted to be missing home Amaryl. Will start Amaryl 1mg po BID for treatment of his DM. A1c in 09/2017 was elevated at 7.2 per prior records. Monitor BGMs closely. Sliding scale insulin PRN as indicated and monitor closely for hypoglycemia. Continue home lisinopril for hypertension - blood pressure controlled and will continue to monitor. Labs obtained on admission revealed mild amenia - hgb 13.3. B12 and folate pending. Recommend completing admission work up including CXR, CT head, TSH, UA and prealbumin. Will monitor labs periodically throughout admission. Upon discharge, patient's care will be returned to PCP, Dr. Osbaldo Fernández.
[2017-12-04] MEDS: DONEPEZIL 5 MG TABLET PO SCH (20:22)
[2017-12-05] MEDS: GLIMEPIRIDE 1 MG TABLET PO SCH ×2 (08:01→17:57)
[2017-12-05] MEDS: ASPIRIN *EC* 81 MG TABLET PO SCH (08:02)
[2017-12-05] MEDS: LISINOPRIL 20 MG TABLET PO SCH (08:02)
[2017-12-05] MEDS: METFORMIN 1,000 MG TABLET PO SCH ×2 (08:02→17:57)
[2017-12-05] MEDS: ALLOPURINOL 300 MG TABLET PO SCH (08:02)
[2017-12-05] MEDS: IBUPROFEN 200 MG TABLET PO SCH ×4 (10:15→20:36)
--- NOTE | 2017-12-05 18:16 | Neuropsych Progress Note ---
[facility] Subjective Date: 12/06/17 - Sujective/Severity of Illness Medications: Allopurinol (Zyloprim) 300 mg PO DAILY [facility] Last Admin: 12/05/17 08:02 Dose: 300 mg Aspirin (Ecotrin) 81 mg PO DAILY [facility] Last Admin: 12/05/17 08:02 Dose: 81 mg Donepezil HCl (Aricept) 5 mg PO HS [facility] Last Admin: 12/04/17 20:22 Dose: 5 mg Glimepiride (Amaryl) 1 mg PO BIDWM [facility] Last Admin: 12/05/17 17:57 Dose: 1 mg Glucose (Glutose 15) 37.5 gm PO PRN PRN PRN Reason: Hypoglycemia Haloperidol (Haldol) 0.5 mg PO Q6H PRN PRN Reason: Extreme agitation Haloperidol Lactate (Haldol) 0.5 mg IM Q6H PRN PRN Reason: Extreme agitation Ibuprofen (Motrin) 200 mg PO Q6HR [facility] Last Admin: 12/05/17 15:14 Dose: Not Given Insulin Aspart (Novolog) 1 - 5 unit SQ SS PRN; Protocol PRN Reason: Hyperglycemia Lisinopril (Prinivil) 20 mg PO DAILY [facility] Last Admin: 12/05/17 08:02 Dose: 20 mg Lorazepam (Ativan) 0.5 mg PO Q6H PRN PRN Reason: Extreme agitation Lorazepam (Ativan Inj) 0.5 mg IM Q6H PRN PRN Reason: Extreme agitation Metformin HCl (Glucophage) 1,000 mg PO BIDBS [facility] Last Admin: 12/05/17 17:57 Dose: 1,000 mg Subjective: Patient seen and chart reviewed. Case discussed with treatment team. On interview, patient is quite pleasant and seems to be in a good mood. He is playing piano and says his parents were both piano players and passed it on to him. He continues to struggle with expressive aphasia and significant word- finding difficulty. He talks about the SW student and says "they might go to dinner with her" but he is not overtly inappropriate or hypersexual. Patient denies any SI, HI or AVH. Patient reports that he is feeling well physically. Nursing staff report patient has been pleasant, with no significant behavioral difficulties in the past 24 hours. He has been adherent with his medications. Patient slept 7 hours overnight. VSS. Patient is eating well. Psychotropic PRNs required in the past 24 hours: none. Start Time: 10:00 Stop Time: 10:20 Mental Status Exam Vitals: Last Vital Signs Temp 98.2 F 12/05/17 16:00 Pulse 72 12/05/17 16:00 Resp 18 12/05/17 16:00 BP 111/67 12/05/17 16:00 Pulse Ox 99 12/05/17 16:00 Height: 1.65 m Weight: 96 kg - Mental Status Exam Muscle Strength/Tone: Normal Dressing: Casual Grooming: Fair Attitude: Cooperative Motor Activity: Retardation Eye Contact: Good Speech: Slowed Volume: Normal Rhythm: Other (Expressive aphasia, word-finding diffiulties) Orientation: Disoriented to time, Disoriented to place, Disoriented to situation , Oriented to person Mood: Euthymic Rate of Thoughts: Delayed Thought Organization: Confused Associations: Illogical Abstract Reasoning: Impaired, concrete Thought Content: Normal Perception/Psychotic: Perception Normal Language: Naming Impaired Fund of Knowledge: Poor fund of knowledge Memory: Poor-immediate, Poor-recent, Poor-remote Suicidal Ideation: Denies Homicidal Ideation: Denies Insight: Impaired Judgement: Impaired Impulse Control: Good - Laboratory Result Diagrams: 12/02/17 20:13 12/02/17 20:13 Laboratory Results - last 24 hr 12/04/17 12/05/17 12/05/17 20:08 06:22 07:12 Glucometer 110 92 Triglycerides 56 Cholesterol 154 LDL Cholesterol, Calc 86.8 VLDL Cholesterol 11.2 HDL Cholesterol 56 Cholesterol/HDL Ratio 2.8 12/05/17 12/05/17 10:25 14:13 Glucometer 184 117 Triglycerides Cholesterol LDL Cholesterol, Calc VLDL Cholesterol HDL Cholesterol Cholesterol/HDL Ratio Assessment and Plan (1) Major neurocognitive disorder Current visit: Yes Status: Acute (2) Self-care deficit for medication management Current visit: Yes Status: Acute (3) Hypertension Current visit: Yes Status: Acute (4) DMII (diabetes mellitus, type 2) 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 Plan to contact [facility] regarding memory enhancers. Hospital Course Summary Disclaimer: The visit summary below is not to be considered part of the above Progress Note. Hospital Course: Plan - 12/03/17 (Admission) Agree with admission to [facility] for psychiatric evaluation and treatment. Hospitalist service consulted for medical management. Provide safe and supportive cares with PRN medications as indicated per Dr. Tamez and team. Continue home medications. Med reconciliation noted to be missing home Amaryl. Will start Amaryl 1mg po BID for treatment of his DM. A1c in 09/2017 was elevated at 7.2 per prior records. Monitor BGMs closely. Sliding scale insulin PRN as indicated and monitor closely for hypoglycemia. Continue home lisinopril for hypertension - blood pressure controlled and will continue to monitor. Labs obtained on admission revealed mild amenia - hgb 13.3. B12 and folate pending. Recommend completing admission work up including CXR, CT head, TSH, UA and prealbumin. Will monitor labs periodically throughout admission. Upon discharge, patient's care will be returned to PCP, Dr. Osbaldo Fernández.
[2017-12-05] MEDS: DONEPEZIL 5 MG TABLET PO SCH (20:36)
[2017-12-06] MEDS: IBUPROFEN 200 MG TABLET PO SCH (09:09)
[2017-12-06] MEDS: GLIMEPIRIDE 1 MG TABLET PO SCH ×2 (09:10→18:04)
[2017-12-06] MEDS: METFORMIN 1,000 MG TABLET PO SCH ×2 (09:10→18:04)
[2017-12-06] MEDS: ALLOPURINOL 300 MG TABLET PO SCH (09:10)
[2017-12-06] MEDS: LISINOPRIL 20 MG TABLET PO SCH (09:10)
[2017-12-06] MEDS: ASPIRIN *EC* 81 MG TABLET PO SCH (09:10)
[2017-12-06] MEDS: INSULIN ASPART 100unit/ml INJECTION SQ PRN (10:24)
[2017-12-06] MEDS ORDERED: IBUPROFEN 200 MG TABLET PO PRN (17:57)
--- NOTE | 2017-12-06 18:40 | Neuropsych Progress Note ---
[facility] Subjective Date: 12/06/17 - Sujective/Severity of Illness Medications: Allopurinol (Zyloprim) 300 mg PO DAILY [facility] Last Admin: 12/06/17 09:10 Dose: 300 mg Aspirin (Ecotrin) 81 mg PO DAILY [facility] Last Admin: 12/06/17 09:10 Dose: 81 mg Donepezil HCl (Aricept) 5 mg PO HS [facility] Last Admin: 12/05/17 20:36 Dose: 5 mg Glimepiride (Amaryl) 1 mg PO BIDWM [facility] Last Admin: 12/06/17 18:04 Dose: 1 mg Glucose (Glutose 15) 37.5 gm PO PRN PRN PRN Reason: Hypoglycemia Haloperidol (Haldol) 0.5 mg PO Q6H PRN PRN Reason: Extreme agitation Haloperidol Lactate (Haldol) 0.5 mg IM Q6H PRN PRN Reason: Extreme agitation Ibuprofen (Motrin) 200 mg PO Q6HR PRN Insulin Aspart (Novolog) 1 - 5 unit SQ SS PRN; Protocol PRN Reason: Hyperglycemia Last Admin: 12/06/17 10:24 Dose: 3 unit Lisinopril (Prinivil) 20 mg PO DAILY [facility] Last Admin: 12/06/17 09:10 Dose: 20 mg Lorazepam (Ativan) 0.5 mg PO Q6H PRN PRN Reason: Extreme agitation Lorazepam (Ativan Inj) 0.5 mg IM Q6H PRN PRN Reason: Extreme agitation Metformin HCl (Glucophage) 1,000 mg PO BIDBS [facility] Last Admin: 12/06/17 18:04 Dose: 1,000 mg Subjective: Patient seen and chart reviewed. Case discussed with treatment team. On interview, patient is quite pleasant and seems to be in a good mood. He reports feeling well physically. He is obsevered to be quite understanding when another male peer with dementia was agitated with staff. Patient denies any SI, HI or AVH. Patient reports that he is feeling well physically. Nursing staff report patient has been pleasant, with no significant behavioral difficulties in the past 24 hours. At times he does not have appropriate safety awareness. He has been adherent with his medications. Patient slept 6 hours overnight. VSS. Patient is eating well. Psychotropic PRNs required in the past 24 hours: none. Start Time: 11:20 Stop Time: 11:40 Mental Status Exam Vitals: Last Vital Signs Temp 97.5 F 12/06/17 16:00 Pulse 78 12/06/17 16:00 Resp 18 12/06/17 16:00 BP 113/65 12/06/17 16:00 Pulse Ox 98 12/06/17 16:00 Height: 1.65 m Weight: 96 kg - Mental Status Exam Muscle Strength/Tone: Normal Dressing: Casual Grooming: Fair Attitude: Cooperative Motor Activity: Retardation Eye Contact: Good Speech: Slowed Volume: Normal Rhythm: Other (Expressive aphasia, word-finding diffiulties) Orientation: Disoriented to time, Disoriented to place, Disoriented to situation , Oriented to person Mood: Euthymic Rate of Thoughts: Delayed Thought Organization: Confused Associations: Intact (makes general statements to cover for poor memory) Abstract Reasoning: Impaired, concrete Thought Content: Normal Perception/Psychotic: Perception Normal Language: Naming Impaired Fund of Knowledge: Poor fund of knowledge Memory: Poor-immediate, Poor-recent, Poor-remote Suicidal Ideation: Denies Homicidal Ideation: Denies Insight: Impaired Judgement: Impaired Impulse Control: Good - Laboratory Result Diagrams: 12/02/17 20:13 12/02/17 20:13 Laboratory Results - last 24 hr 12/04/17 12/05/17 12/06/17 07:18 20:45 06:10 Glucometer 156 102 Vitamin B12 214 L Folate 18.2 12/06/17 10:06 Glucometer 257 Vitamin B12 Folate Assessment and Plan (1) Major neurocognitive disorder Current visit: Yes Status: Acute 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 SW working with DPOA in regards to placement options for necessary level of care. Continue current care otherwise. Hospital Course Summary Disclaimer: The visit summary below is not to be considered part of the above Progress Note. Hospital Course: Plan - 12/03/17 (Admission) Agree with admission to [facility] for psychiatric evaluation and treatment. Hospitalist service consulted for medical management. Provide safe and supportive cares with PRN medications as indicated per Dr. Tamez and team. Continue home medications. Med reconciliation noted to be missing home Amaryl. Will start Amaryl 1mg po BID for treatment of his DM. A1c in 09/2017 was elevated at 7.2 per prior records. Monitor BGMs closely. Sliding scale insulin PRN as indicated and monitor closely for hypoglycemia. Continue home lisinopril for hypertension - blood pressure controlled and will continue to monitor. Labs obtained on admission revealed mild amenia - hgb 13.3. B12 and folate pending. Recommend completing admission work up including CXR, CT head, TSH, UA and prealbumin. Will monitor labs periodically throughout admission. Upon discharge, patient's care will be returned to PCP, Dr. Osbaldo Fernández. Psych 12/06/16: Message left for DPOA in regards to starting Namenda in addition to Aricept. SW working with DPOA in regards to placement options for necessary level of care. Continue current care otherwise.
[2017-12-06] MEDS: DONEPEZIL 5 MG TABLET PO SCH (20:54)
[2017-12-07] MEDS: ALLOPURINOL 300 MG TABLET PO SCH (08:10)
[2017-12-07] MEDS: GLIMEPIRIDE 1 MG TABLET PO SCH ×2 (08:10→17:28)
[2017-12-07] MEDS: METFORMIN 1,000 MG TABLET PO SCH ×2 (08:10→17:28)
[2017-12-07] MEDS: ASPIRIN *EC* 81 MG TABLET PO SCH (08:11)
[2017-12-07] MEDS: LISINOPRIL 20 MG TABLET PO SCH (08:11)
--- NOTE | 2017-12-07 11:30 | Neuropsych Progress Note ---
[facility] Subjective Date: 12/07/17 - Sujective/Severity of Illness Medications: Allopurinol (Zyloprim) 300 mg PO DAILY [facility] Last Admin: 12/07/17 08:10 Dose: 300 mg Aspirin (Ecotrin) 81 mg PO DAILY [facility] Last Admin: 12/07/17 08:11 Dose: 81 mg Donepezil HCl (Aricept) 5 mg PO HS [facility] Last Admin: 12/06/17 20:54 Dose: 5 mg Glimepiride (Amaryl) 1 mg PO BIDWM [facility] Last Admin: 12/07/17 08:10 Dose: 1 mg Glucose (Glutose 15) 37.5 gm PO PRN PRN PRN Reason: Hypoglycemia Haloperidol (Haldol) 0.5 mg PO Q6H PRN PRN Reason: Extreme agitation Haloperidol Lactate (Haldol) 0.5 mg IM Q6H PRN PRN Reason: Extreme agitation Ibuprofen (Motrin) 200 mg PO Q6HR PRN Insulin Aspart (Novolog) 1 - 5 unit SQ SS PRN; Protocol PRN Reason: Hyperglycemia Last Admin: 12/06/17 10:24 Dose: 3 unit Lisinopril (Prinivil) 20 mg PO DAILY [facility] Last Admin: 12/07/17 08:11 Dose: 20 mg Lorazepam (Ativan) 0.5 mg PO Q6H PRN PRN Reason: Extreme agitation Lorazepam (Ativan Inj) 0.5 mg IM Q6H PRN PRN Reason: Extreme agitation Metformin HCl (Glucophage) 1,000 mg PO BIDBS [facility] Last Admin: 12/07/17 08:10 Dose: 1,000 mg Subjective: Patient seen and chart reviewed. Nursing reports pt is doing well. Slept well and has a good appetite. No behaviors noted. On face to face the pt is pleasant. He reports his mood is stable. He denies any pain. Tolerating meds. Voices no concerns at this time Start Time: 10:15 Stop Time: 10:30 Mental Status Exam Vitals: Last Vital Signs Temp 97.8 F 12/07/17 08:00 Pulse 81 12/07/17 08:00 Resp 18 12/07/17 08:00 BP 136/83 12/07/17 08:00 Pulse Ox 96 12/07/17 08:00 Height: 1.65 m Weight: 96 kg - Mental Status Exam Muscle Strength/Tone: Normal Dressing: Casual Grooming: Fair Attitude: Cooperative Motor Activity: Retardation Eye Contact: Good Speech: Slowed Volume: Normal Rhythm: Other (Expressive aphasia, word-finding diffiulties) Orientation: Disoriented to time, Disoriented to place, Disoriented to situation , Oriented to person Mood: Euthymic Rate of Thoughts: Delayed Thought Organization: Confused Associations: Intact (makes general statements to cover for poor memory) Abstract Reasoning: Impaired, concrete Thought Content: Normal Perception/Psychotic: Perception Normal Language: Naming Impaired Fund of Knowledge: Poor fund of knowledge Memory: Poor-immediate, Poor-recent, Poor-remote Suicidal Ideation: Denies Homicidal Ideation: Denies Insight: Impaired Judgement: Impaired Impulse Control: Good - Laboratory Result Diagrams: 12/02/17 20:13 12/02/17 20:13 Laboratory Results - last 24 hr 12/06/17 12/06/17 12/07/17 15:43 21:16 02:36 Glucometer 76 85 103 12/07/17 12/07/17 06:56 11:05 Glucometer 93 150 Assessment and Plan (1) Major neurocognitive disorder Current visit: Yes Status: Acute (2) Self-care deficit for medication management Current visit: Yes Status: Acute (3) Hypertension Current visit: Yes Status: Acute (4) DMII (diabetes mellitus, type 2) 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 Hospital Course: Plan - 12/03/17 (Admission) Agree with admission to [facility] for psychiatric evaluation and treatment. Hospitalist service consulted for medical management. Provide safe and supportive cares with PRN medications as indicated per Dr. Tamez and team. Continue home medications. Med reconciliation noted to be missing home Amaryl. Will start Amaryl 1mg po BID for treatment of his DM. A1c in 09/2017 was elevated at 7.2 per prior records. Monitor BGMs closely. Sliding scale insulin PRN as indicated and monitor closely for hypoglycemia. Continue home lisinopril for hypertension - blood pressure controlled and will continue to monitor. Labs obtained on admission revealed mild amenia - hgb 13.3. B12 and folate pending. Recommend completing admission work up including CXR, CT head, TSH, UA and prealbumin. Will monitor labs periodically throughout admission. Upon discharge, patient's care will be returned to PCP, Dr. Osbaldo Fernández. Psych 12/06/16: Message left for DPOA in regards to starting Namenda in addition to Aricept. SW working with DPOA in regards to placement options for necessary level of care. Continue current care otherwise. 12/07/17- PT doing well- Continue current care
[2017-12-07] MEDS: DONEPEZIL 5 MG TABLET PO SCH ×2 (19:37→20:01)
[2017-12-08] MEDS: METFORMIN 1,000 MG TABLET PO SCH ×2 (09:16→16:49)
[2017-12-08] MEDS: ALLOPURINOL 300 MG TABLET PO SCH (09:16)
[2017-12-08] MEDS: LISINOPRIL 20 MG TABLET PO SCH (09:16)
[2017-12-08] MEDS: ASPIRIN *EC* 81 MG TABLET PO SCH (09:16)
[2017-12-08] MEDS: GLIMEPIRIDE 1 MG TABLET PO SCH ×2 (09:16→16:49)
--- NOTE | 2017-12-08 10:41 | Neuropsych Progress Note ---
[facility] Subjective Date: 12/08/17 - Sujective/Severity of Illness Medications: Allopurinol (Zyloprim) 300 mg PO DAILY [facility] Last Admin: 12/08/17 09:16 Dose: 300 mg Aspirin (Ecotrin) 81 mg PO DAILY [facility] Last Admin: 12/08/17 09:16 Dose: 81 mg Donepezil HCl (Aricept) 5 mg PO HS [facility] Last Admin: 12/07/17 20:01 Dose: Not Given Glimepiride (Amaryl) 1 mg PO BIDWM [facility] Last Admin: 12/08/17 09:16 Dose: 1 mg Glucose (Glutose 15) 37.5 gm PO PRN PRN PRN Reason: Hypoglycemia Haloperidol (Haldol) 0.5 mg PO Q6H PRN PRN Reason: Extreme agitation Haloperidol Lactate (Haldol) 0.5 mg IM Q6H PRN PRN Reason: Extreme agitation Ibuprofen (Motrin) 200 mg PO Q6HR PRN Insulin Aspart (Novolog) 1 - 5 unit SQ SS PRN; Protocol PRN Reason: Hyperglycemia Last Admin: 12/06/17 10:24 Dose: 3 unit Lisinopril (Prinivil) 20 mg PO DAILY [facility] Last Admin: 12/08/17 09:16 Dose: 20 mg Lorazepam (Ativan) 0.5 mg PO Q6H PRN PRN Reason: Extreme agitation Lorazepam (Ativan Inj) 0.5 mg IM Q6H PRN PRN Reason: Extreme agitation Metformin HCl (Glucophage) 1,000 mg PO BIDBS [facility] Last Admin: 12/08/17 09:16 Dose: 1,000 mg Subjective: Patient seen and chart reviewed. Nursing reports pt is doing well. Only slept 4.5 hours but has been pleasant with a good appetite. No behaviors. On face to face the pt has a bright affect and is pleasant. He states he is doing well and voices no concerns. Mood is stable. Tolerating meds Start Time: 10:15 Stop Time: 10:30 Mental Status Exam Vitals: Last Vital Signs Temp 97.8 F 12/08/17 08:00 Pulse 79 12/08/17 08:00 Resp 20 12/08/17 08:00 BP 121/67 12/08/17 08:00 Pulse Ox 98 12/08/17 08:00 Height: 1.65 m Weight: 96 kg - Mental Status Exam Muscle Strength/Tone: Normal Dressing: Casual Grooming: Fair Attitude: Cooperative Motor Activity: Retardation Eye Contact: Good Speech: Slowed Volume: Normal Rhythm: Other (Expressive aphasia, word-finding diffiulties) Orientation: Disoriented to time, Disoriented to place, Disoriented to situation , Oriented to person Mood: Euthymic Rate of Thoughts: Delayed Thought Organization: Confused Associations: Intact (makes general statements to cover for poor memory) Abstract Reasoning: Impaired, concrete Thought Content: Normal Perception/Psychotic: Perception Normal Language: Naming Impaired Fund of Knowledge: Poor fund of knowledge Memory: Poor-immediate, Poor-recent, Poor-remote Suicidal Ideation: Denies Homicidal Ideation: Denies Insight: Impaired Judgement: Impaired Impulse Control: Good - Laboratory Result Diagrams: 12/02/17 20:13 12/02/17 20:13 Laboratory Results - last 24 hr 12/07/17 12/07/17 12/07/17 11:05 16:28 19:56 Glucometer 150 141 98 12/08/17 06:19 Glucometer 90 Assessment and Plan (1) Major neurocognitive disorder Current visit: Yes Status: Acute (2) Self-care deficit for medication management Current visit: Yes Status: Acute (3) Hypertension Current visit: Yes Status: Acute (4) DMII (diabetes mellitus, type 2) 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 Hospital Course: Plan - 12/03/17 (Admission) Agree with admission to [facility] for psychiatric evaluation and treatment. Hospitalist service consulted for medical management. Provide safe and supportive cares with PRN medications as indicated per Dr. Tamez and team. Continue home medications. Med reconciliation noted to be missing home Amaryl. Will start Amaryl 1mg po BID for treatment of his DM. A1c in 09/2017 was elevated at 7.2 per prior records. Monitor BGMs closely. Sliding scale insulin PRN as indicated and monitor closely for hypoglycemia. Continue home lisinopril for hypertension - blood pressure controlled and will continue to monitor. Labs obtained on admission revealed mild amenia - hgb 13.3. B12 and folate pending. Recommend completing admission work up including CXR, CT head, TSH, UA and prealbumin. Will monitor labs periodically throughout admission. Upon discharge, patient's care will be returned to PCP, Dr. Osbaldo Fernández. Psych 12/06/16: Message left for DPOA in regards to starting Namenda in addition to Aricept. SW working with DPOA in regards to placement options for necessary level of care. Continue current care otherwise. 12/07/17- PT doing well- Continue current care 12/08/17- Some issues with sleep. Continue current care
--- NOTE | 2017-12-08 16:30 | Progress Note ---
- Date 12/08/17 Subjective: Kyle is seen today while sitting in the dayroom, watching TV. He has a bright affect and denies any complaints or concerns. No chest pain, shortness of breath, abdominal pain, nausea, vomiting or dysuria. His appetite has been good and bowels are moving. Nursing reports that he has not had any behaviors but continues to have issues with sleep. Objective Vital signs: Temperature 97.8 F 12/08/17 08:00 Pulse Rate 79 12/08/17 08:00 Respiratory Rate 20 12/08/17 08:00 Blood Pressure 121/67 12/08/17 08:00 Pulse Oximetry 98 12/08/17 08:00 Height/Weight/BMI: Height 5 ft 5 in Weight 211 lb 10.3 oz Body Mass Index 34.4 Comments: sitting in dayroom. - Constitutional Present: no acute distress, well nourished, well developed, cooperative - Routine HEENT Exam Head: Present: normocephalic, atraumatic Eye: Present: PERRL. Absent: conjunctival icterus ENT: Present: mucous membranes moist - Routine Respiratory Exam Present: CTA bilaterally. Absent: rales, rhonchi, stridor, wheezes, crackles - Routine Cardiovascular Exam Present: RRR, S1, S2 - Routine Abdominal Exam Present: soft, normoactive bowel sounds, non distended, non tender - Routine Extremities Exam Present: no edema, full ROM, pulses intact - Routine Back/Spine/Pelvis Exam Back/Spine: Present: full ROM. Absent: vertebral tenderness - Routine Musculoskeletal Exam Musculoskeletal: Present: moving extremities well - Routine Skin Exam Present: dry, warm. Absent: jaundice Comments: afebrile - Routine Neurological Exam Present: alert, moving all extremities, normal speech. Absent: facial asymmetry - Routine Lymphatic Exam Lymphatic: Absent: lymphedema - Routine Psychiatric Exam Present: cooperative Results - Labs CBC & Chem 7: 12/02/17 20:13 12/02/17 20:13 Assessment and Plan (1) Dementia with behavioral disturbance Current visit: Yes Status: Acute Assessment and Plan: Assessment: Dementia with behavioral disturbance and failure to perform self care. Hypertension. Diabetes Mellitus Type 2. Gout. Degenerative joint disease. Obesity. Plan - 12/08/17 Kyle continues to have issues with sleep but no behaviors. Continue psychiatric care per Dr. Tamez and team. Continue to provide safe and supportive environment. Blood sugars variable, but fairly well controlled. Continue to monitor closely. Will recheck labs in AM to monitor blood counts, electrolytes and renal function. : the patient was discussed with the PA. I have reviewed her notes. I have reviewed his labs, imaging and other notes. I agree with the above assessment and plan. - Time spent with patient Time with patient PN: 25 minutes - Physician Narrative Physician: Amisha Carlin MD Narrative: Date: 12/08/17 Time: 1626 Hospital Course Summary Disclaimer: The visit summary below is not to be considered part of the above Progress Note. Hospital Course: Plan - 12/03/17 (Admission) Agree with [facility] to [facility] for [facility] evaluation and treatment. Hospitalist service consulted for medical management. Provide safe and supportive cares with PRN medications as indicated per Dr. Tamez and team. Continue home medications. Med reconciliation noted to be missing home Amaryl. Will start Amaryl 1mg po BID for treatment of his DM. A1c in 09/2017 was elevated at 7.2 per prior records. Monitor BGMs closely. Sliding scale insulin PRN as indicated and monitor closely for hypoglycemia. Continue home lisinopril for hypertension - blood pressure controlled and will continue to monitor. Labs obtained on admission revealed mild amenia - hgb 13.3. B12 and folate pending. Recommend completing admission work up including CXR, CT head, TSH, UA and prealbumin. Will monitor labs periodically throughout admission. Upon discharge, patient's care will be returned to PCP, Dr. Osbaldo Fernández. Psych 12/06/16: Message left for DPOA in regards to starting Namenda in addition to Aricept. SW working with DPOA in regards to placement options for necessary level of care. Continue current care otherwise. 12/07/17- PT doing well- Continue current care 12/08/17- Some issues with sleep. Continue current care Plan - 12/08/17 Kyle continues to have issues with sleep but no behaviors. Continue psychiatric care per Dr. Tamez and team. Continue to provide safe and supportive environment. Blood sugars variable, but fairly well controlled. Continue to monitor closely. Will recheck labs in AM to monitor blood counts, electrolytes and renal function.
[2017-12-08] MEDS: CYANOCOBALAMIN (B-12) 500mcg TABLET PO SCH (16:49)
[2017-12-08] MEDS: DONEPEZIL 5 MG TABLET PO SCH (19:15)
[2017-12-09] MEDS: DONEPEZIL 5 MG TABLET PO SCH ×2 (01:02→20:12)
[2017-12-09] MEDS: GLIMEPIRIDE 1 MG TABLET PO SCH ×2 (08:20→17:04)
[2017-12-09] MEDS: CYANOCOBALAMIN (B-12) 500mcg TABLET PO SCH (08:20)
[2017-12-09] MEDS: METFORMIN 1,000 MG TABLET PO SCH ×2 (08:20→17:04)
[2017-12-09] MEDS: ALLOPURINOL 300 MG TABLET PO SCH (08:20)
[2017-12-09] MEDS: LISINOPRIL 20 MG TABLET PO SCH (08:20)
[2017-12-09] MEDS: ASPIRIN *EC* 81 MG TABLET PO SCH (08:20)
[2017-12-09] MEDS: INSULIN ASPART 100unit/ml INJECTION SQ PRN ×2 (11:52→20:22)
--- NOTE | 2017-12-09 15:09 | Neuropsych Progress Note ---
[facility] Subjective Date: 12/09/17 - Sujective/Severity of Illness Medications: Allopurinol (Zyloprim) 300 mg PO DAILY [facility] Last Admin: 12/09/17 08:20 Dose: 300 mg Aspirin (Ecotrin) 81 mg PO DAILY [facility] Last Admin: 12/09/17 08:20 Dose: 81 mg Cyanocobalamin (Vit. B-12) 1,000 mcg PO DAILY [facility] Last Admin: 12/09/17 08:20 Dose: 1,000 mcg Donepezil HCl (Aricept) 5 mg PO HS [facility] Last Admin: 12/09/17 01:02 Dose: Not Given Glimepiride (Amaryl) 1 mg PO BIDWM [facility] Last Admin: 12/09/17 08:20 Dose: 1 mg Glucose (Glutose 15) 37.5 gm PO PRN PRN PRN Reason: Hypoglycemia Haloperidol (Haldol) 0.5 mg PO Q6H PRN PRN Reason: Extreme agitation Haloperidol Lactate (Haldol) 0.5 mg IM Q6H PRN PRN Reason: Extreme agitation Ibuprofen (Motrin) 200 mg PO Q6HR PRN Insulin Aspart (Novolog) 1 - 5 unit SQ SS PRN; Protocol PRN Reason: Hyperglycemia Last Admin: 12/09/17 11:52 Dose: 3 unit Lisinopril (Prinivil) 20 mg PO DAILY [facility] Last Admin: 12/09/17 08:20 Dose: 20 mg Lorazepam (Ativan) 0.5 mg PO Q6H PRN PRN Reason: Extreme agitation Lorazepam (Ativan Inj) 0.5 mg IM Q6H PRN PRN Reason: Extreme agitation Metformin HCl (Glucophage) 1,000 mg PO BIDBS [facility] Last Admin: 12/09/17 08:20 Dose: 1,000 mg Subjective: Patient seen and chart reviewed. Case discussed with treatment team. On interview, patient is pleasant. He reports his mood is good and he feels well physically. He plays a song on the piano for me, which he seems to enjoy. Patient denies any SI, HI or AVH. Patient denies any adverse side effects related to psychotropic medications. Nursing staff report patient has been pleasant and cooperative, without significant behavioral difficulties on the unit. He continues to have word- finding difficulties frequently. Patient has been adherent with medications. Patient slept 6.5 hours overnight. VSS. Patient is eating well. Psychotropic PRNs required in the past 24 hours: none. Awaiting response from [facility] in regards to placement. Start Time: 09:20 Stop Time: 09:40 Mental Status Exam Vitals: Last Vital Signs Temp 97.4 F 12/09/17 07:54 Pulse 73 12/09/17 07:54 Resp 18 12/09/17 07:54 BP 136/67 12/09/17 07:54 Pulse Ox 96 12/09/17 07:54 Height: 1.65 m Weight: 96 kg - Mental Status Exam Muscle Strength/Tone: Normal Dressing: Casual Grooming: Fair Attitude: Cooperative Motor Activity: Retardation Eye Contact: Good Speech: Slowed Volume: Normal Rhythm: Other (Expressive aphasia, word-finding diffiulties) Orientation: Disoriented to time, Disoriented to place, Disoriented to situation , Oriented to person Mood: Euthymic Affect: Bright, Relaxed Rate of Thoughts: Delayed Thought Organization: Confused Associations: Intact (makes general statements to cover for poor memory) Abstract Reasoning: Impaired, concrete Thought Content: Normal Perception/Psychotic: Perception Normal Language: Naming Impaired Fund of Knowledge: Poor fund of knowledge Memory: Poor-immediate, Poor-recent, Poor-remote Suicidal Ideation: Denies Homicidal Ideation: Denies Insight: Impaired Judgement: Impaired Impulse Control: Good - Laboratory Result Diagrams: 12/09/17 08:35 12/09/17 08:35 Laboratory Results - last 24 hr 12/09/17 12/09/17 12/09/17 08:35 08:35 10:09 WBC 7.5 RBC 5.03 Hgb 14.9 Hct 45.6 MCV 90.7 MCH 29.6 MCHC 32.7 RDW Std Deviation 45.8 Plt Count 275 MPV 12.2 Immature Gran % (Auto) 0.1 Neut % (Auto) 78.5 H Lymph % (Auto) 13.4 L [place] % (Auto) 5.9 Eos % (Auto) 1.7 Baso % (Auto) 0.4 Neut # (Auto) 5.8 Lymph # (Auto) 1.0 [place] # (Auto) 0.4 Eos # (Auto) 0.1 Baso # (Auto) 0.0 Abs Immat Gran (auto) 0.01 Turbidity < 20 Sodium 139 Potassium 4.7 Chloride 97 L Carbon Dioxide 30 Anion Gap 12 BUN 20.0 Creatinine 0.9 GFR Calculation 82 BUN/Creatinine Ratio 22 Glucose 262 H Glucometer 251 Calculated Osmolality 280 Calcium 9.9 Icterus Index < 2 Specimen Hemolysis < 15 12/09/17 14:16 WBC RBC Hgb Hct MCV MCH MCHC RDW Std Deviation Plt Count MPV Immature Gran % (Auto) Neut % (Auto) Lymph % (Auto) [place] % (Auto) Eos % (Auto) Baso % (Auto) Neut # (Auto) Lymph # (Auto) [place] # (Auto) Eos # (Auto) Baso # (Auto) Abs Immat Gran (auto) Turbidity Sodium Potassium Chloride Carbon Dioxide Anion Gap BUN Creatinine GFR Calculation BUN/Creatinine Ratio Glucose Glucometer 86 Calculated Osmolality Calcium Icterus Index Specimen Hemolysis Assessment and Plan (1) Major neurocognitive disorder Problem details: due to Alzheimer's, moderate, without behavioral disturbance, with expressive aphasia Current visit: Yes Status: Acute (2) Self-care deficit for medication management Problem details: secondary to progressive dementia as above Current visit: Yes Status: Acute (3) Hypertension Current visit: Yes Status: Acute (4) DMII (diabetes mellitus, type 2) 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 Hospital Course Summary Disclaimer: The visit summary below is not to be considered part of the above Progress Note. Hospital Course: Plan - 12/03/17 (Admission) Agree with [facility] to [facility] for [facility] evaluation and treatment. Hospitalist service consulted for medical management. Provide safe and supportive cares with PRN medications as indicated per Dr. Tamez and team. Continue home medications. Med reconciliation noted to be missing home Amaryl. Will start Amaryl 1mg po BID for treatment of his DM. A1c in 09/2017 was elevated at 7.2 per prior records. Monitor BGMs closely. Sliding scale insulin PRN as indicated and monitor closely for hypoglycemia. Continue home lisinopril for hypertension - blood pressure controlled and will continue to monitor. Labs obtained on admission revealed mild amenia - hgb 13.3. B12 and folate pending. Recommend completing admission work up including CXR, CT head, TSH, UA and prealbumin. Will monitor labs periodically throughout admission. Upon discharge, patient's care will be returned to PCP, Dr. Osbaldo Fernández. Psych 12/06/16: Message left for DPOA in regards to starting Namenda in addition to Aricept. SW working with DPOA in regards to placement options for necessary level of care. Continue current care otherwise. 12/07/17- PT doing well- Continue current care 12/08/17- Some issues with sleep. Continue current care Plan - 12/08/17 Kyle continues to have issues with sleep but no behaviors. Continue psychiatric care per Dr. Tamez and team. Continue to provide safe and supportive environment. Blood sugars variable, but fairly well controlled. Continue to monitor closely. Will recheck labs in AM to monitor blood counts, electrolytes and renal function. 12/09/17 Psych: Continue current care; awaiting response from [facility] in regards to placement as patient cannot safely discharge back to living independently at home.
[2017-12-10] MEDS: ASPIRIN *EC* 81 MG TABLET PO SCH (08:00)
[2017-12-10] MEDS: ALLOPURINOL 300 MG TABLET PO SCH (08:00)
[2017-12-10] MEDS: METFORMIN 1,000 MG TABLET PO SCH ×2 (08:00→17:13)
[2017-12-10] MEDS: LISINOPRIL 20 MG TABLET PO SCH (08:00)
[2017-12-10] MEDS: GLIMEPIRIDE 1 MG TABLET PO SCH ×2 (08:00→17:13)
[2017-12-10] MEDS: CYANOCOBALAMIN (B-12) 500mcg TABLET PO SCH (08:00)
--- NOTE | 2017-12-10 14:02 | Neuropsych Progress Note ---
[facility] Subjective Date: 12/10/17 - Sujective/Severity of Illness Medications: Allopurinol (Zyloprim) 300 mg PO DAILY [facility] Last Admin: 12/10/17 08:00 Dose: 300 mg Aspirin (Ecotrin) 81 mg PO DAILY [facility] Last Admin: 12/10/17 08:00 Dose: 81 mg Cyanocobalamin (Vit. B-12) 1,000 mcg PO DAILY [facility] Last Admin: 12/10/17 08:00 Dose: 1,000 mcg Donepezil HCl (Aricept) 5 mg PO HS [facility] Last Admin: 12/09/17 20:12 Dose: 5 mg Glimepiride (Amaryl) 1 mg PO BIDWM [facility] Last Admin: 12/10/17 08:00 Dose: 1 mg Glucose (Glutose 15) 37.5 gm PO PRN PRN PRN Reason: Hypoglycemia Haloperidol (Haldol) 0.5 mg PO Q6H PRN PRN Reason: Extreme agitation Haloperidol Lactate (Haldol) 0.5 mg IM Q6H PRN PRN Reason: Extreme agitation Ibuprofen (Motrin) 200 mg PO Q6HR PRN Insulin Aspart (Novolog) 1 - 5 unit SQ SS PRN; Protocol PRN Reason: Hyperglycemia Last Admin: 12/09/17 20:22 Dose: 1 unit Lisinopril (Prinivil) 20 mg PO DAILY [facility] Last Admin: 12/10/17 08:00 Dose: 20 mg Lorazepam (Ativan) 0.5 mg PO Q6H PRN PRN Reason: Extreme agitation Lorazepam (Ativan Inj) 0.5 mg IM Q6H PRN PRN Reason: Extreme agitation Metformin HCl (Glucophage) 1,000 mg PO BIDBS [facility] Last Admin: 12/10/17 08:00 Dose: 1,000 mg Subjective: Patient seen and chart reviewed. Case discussed with treatment team. On interview, patient is pleasant. He reports his mood is "happy" and he feels well physically. Patient denies any SI, HI or AVH. Patient denies any adverse side effects related to psychotropic medications. Nursing staff report patient has been pleasant and cooperative, without significant behavioral difficulties on the unit. He continues to have word- finding difficulties frequently. Patient has been adherent with medications. Patient slept 6 hours overnight. VSS. Patient is eating well. Psychotropic PRNs required in the past 24 hours: none. Awaiting response from [facility] in regards to placement. Start Time: 09:00 Stop Time: 09:20 Mental Status Exam Vitals: Last Vital Signs Temp 97.2 F 12/10/17 08:00 Pulse 74 12/10/17 08:00 Resp 18 12/10/17 08:00 BP 115/67 12/10/17 08:00 Pulse Ox 98 12/10/17 08:00 Height: 1.65 m Weight: 91.4 kg - Mental Status Exam Muscle Strength/Tone: Normal Dressing: Casual Grooming: Good Attitude: Cooperative Motor Activity: Retardation Eye Contact: Good Speech: Slowed Volume: Normal Rhythm: Other (Expressive aphasia, word-finding diffiulties) Sensory: Alert Orientation: Disoriented to time, Disoriented to place, Disoriented to situation , Oriented to person Mood: Euthymic Affect: Bright Rate of Thoughts: Delayed Thought Organization: Confused Associations: Intact (makes general statements to cover for poor memory) Abstract Reasoning: Impaired, concrete Thought Content: Normal Perception/Psychotic: Perception Normal Language: Naming Impaired Fund of Knowledge: Poor fund of knowledge Memory: Poor-immediate, Poor-recent, Poor-remote Suicidal Ideation: Denies Homicidal Ideation: Denies Insight: Limited Judgement: Limited Impulse Control: Good - Laboratory Result Diagrams: 12/09/17 08:35 12/09/17 08:35 Laboratory Results - last 24 hr 12/09/17 12/09/17 14:16 20:17 Glucometer 86 172 Assessment and Plan (1) Major neurocognitive disorder Problem details: due to Alzheimer's, moderate, without behavioral disturbance, with expressive aphasia Current visit: Yes Status: Acute (2) Self-care deficit for medication management Problem details: secondary to progressive dementia as above Current visit: Yes Status: Acute (3) Hypertension Current visit: Yes Status: Acute (4) DMII (diabetes mellitus, type 2) 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 Patient requires 24/7 supervision for safety and medication management , assistance with meals and cares. It would not be safe to discharge patient back to home until a higher level of care can be arranged. Hospital Course Summary Disclaimer: The visit summary below is not to be considered part of the above Progress Note. Hospital Course: Plan - 12/03/17 (Admission) Agree with admission to [facility] for psychiatric evaluation and treatment. Hospitalist service consulted for medical management. Provide safe and supportive cares with PRN medications as indicated per Dr. Tamez and team. Continue home medications. Med reconciliation noted to be missing home Amaryl. Will start Amaryl 1mg po BID for treatment of his DM. A1c in 09/2017 was elevated at 7.2 per prior records. Monitor BGMs closely. Sliding scale insulin PRN as indicated and monitor closely for hypoglycemia. Continue home lisinopril for hypertension - blood pressure controlled and will continue to monitor. Labs obtained on admission revealed mild amenia - hgb 13.3. B12 and folate pending. Recommend completing admission work up including CXR, CT head, TSH, UA and prealbumin. Will monitor labs periodically throughout admission. Upon discharge, patient's care will be returned to PCP, Dr. Osbaldo Fernández. Psych 12/06/16: Message left for DPOA in regards to starting Namenda in addition to Aricept. SW working with DPOA in regards to placement options for necessary level of care. Continue current care otherwise. 12/07/17- PT doing well- Continue current care 12/08/17- Some issues with sleep. Continue current care Plan - 12/08/17 Kyle continues to have issues with sleep but no behaviors. Continue psychiatric care per Dr. Tamez and team. Continue to provide safe and supportive environment. Blood sugars variable, but fairly well controlled. Continue to monitor closely. Will recheck labs in AM to monitor blood counts, electrolytes and renal function. 12/09/17 Psych: Continue current care; awaiting response from [facility] in regards to placement as patient cannot safely discharge back to living independently at home. 12/10/17 Psych: Continue current care while attempting to finalize safe discharge plan for patient. Patient requires 24/7 supervision for safety and medication management, assistance with meals and cares. It would not be safe to discharge patient back to home until a higher level of care can be arranged.
[2017-12-10] MEDS: DONEPEZIL 5 MG TABLET PO SCH (19:39)
[2017-12-11] MEDS: DONEPEZIL 5 MG TABLET PO SCH ×2 (00:06→20:05)
[2017-12-11] MEDS: ALLOPURINOL 300 MG TABLET PO SCH (08:09)
[2017-12-11] MEDS: GLIMEPIRIDE 1 MG TABLET PO SCH ×2 (08:09→17:06)
[2017-12-11] MEDS: CYANOCOBALAMIN (B-12) 500mcg TABLET PO SCH (08:09)
[2017-12-11] MEDS: ASPIRIN *EC* 81 MG TABLET PO SCH (08:09)
[2017-12-11] MEDS: METFORMIN 1,000 MG TABLET PO SCH ×2 (08:09→17:07)
[2017-12-11] MEDS: LISINOPRIL 20 MG TABLET PO SCH (08:10)
--- NOTE | 2017-12-11 09:10 | Progress Note ---
- Date 12/11/17 Subjective: Kyle is seen this morning while sitting in the day room, having just finished his breakfast. He has a bright smile and a cheerful disposition this morning. He denies any concerns or complaints including no chest pain, shortness of breath, abdominal pain, nausea, vomiting or dysuria. His appetite is good and bowels are moving. Recent labs on 12/09/17 were unremarkable. Nursing reports that he continues to do well and anticipate discharge in near future - awaiting response from [facility]. Objective Vital signs: Temperature 97.4 F 12/11/17 07:50 Pulse Rate 72 12/11/17 07:50 Respiratory Rate 16 12/11/17 07:50 Blood Pressure 118/66 12/11/17 07:50 Pulse Oximetry 99 12/11/17 07:50 Height/Weight/BMI: Height 5 ft 5 in Weight 201 lb 8.04 oz Body Mass Index 34.4 Comments: sitting in day room, cheerful. - Constitutional Present: no acute distress, well nourished, well developed, cooperative - Routine HEENT Exam Head: Present: normocephalic, atraumatic Eye: Present: PERRL. Absent: conjunctival icterus ENT: Present: mucous membranes moist - Routine Respiratory Exam Present: CTA bilaterally. Absent: rales, rhonchi, stridor, wheezes, crackles - Routine Cardiovascular Exam Present: RRR, S1, S2 - Routine Abdominal Exam Present: soft, normoactive bowel sounds, non distended, non tender - Routine Extremities Exam Present: edema (trace), non tender, full ROM, pulses intact - Routine Back/Spine/Pelvis Exam Back/Spine: Present: full ROM. Absent: vertebral tenderness - Routine Musculoskeletal Exam Musculoskeletal: Present: moving extremities well - Routine Skin Exam Present: intact, dry, warm. Absent: jaundice Comments: afebrile - Routine Neurological Exam Present: alert (orienated to self), moving all extremities. Absent: facial asymmetry expressive aphasia. - Routine Lymphatic Exam Lymphatic: Absent: lymphedema - Routine Psychiatric Exam Present: normal affect, cooperative Comments: cheerful Results - Labs CBC & Chem 7: 12/09/17 08:35 12/09/17 08:35 Assessment and Plan (1) Dementia with behavioral disturbance Current visit: Yes Status: Acute Assessment and Plan: Assessment: Dementia with behavioral disturbance and failure to perform self care. Hypertension. Diabetes Mellitus Type 2. Gout. Degenerative joint disease. Obesity. Plan - 12/11/17 Kyle continues to make slow gains. Continue psychiatric care per Dr. Tamez and team. Anticipate discharge in near future - awaiting acceptance from [facility]. Recent labs on 12/09/17 were unremarkable. Blood sugars relatively well controlled. Continue to provide safe and supportive environment. Vital signs stable. Continue to monitor. Continue current plan of care. - Physician Narrative Narrative: Date: 12/11/17 Time: 0907 Hospital Course Summary Disclaimer: The visit summary below is not to be considered part of the above Progress Note. Hospital Course: Plan - 12/03/17 (Admission) Agree with [facility] for [facility] evaluation and treatment. Hospitalist service consulted for medical management. Provide safe and supportive cares with PRN medications as indicated per Dr. Tamez and team. Continue home medications. Med reconciliation noted to be missing home Amaryl. Will start Amaryl 1mg po BID for treatment of his DM. A1c in 09/2017 was elevated at 7.2 per prior records. Monitor BGMs closely. Sliding scale insulin PRN as indicated and monitor closely for hypoglycemia. Continue home lisinopril for hypertension - blood pressure controlled and will continue to monitor. Labs obtained on admission revealed mild amenia - hgb 13.3. B12 and folate pending. Recommend completing admission work up including CXR, CT head, TSH, UA and prealbumin. Will monitor labs periodically throughout admission. Upon discharge, patient's care will be returned to PCP, Dr. Osbaldo Fernández. Psych 12/06/16: Message left for DPOA in regards to starting Namenda in addition to Aricept. SW working with DPOA in regards to placement options for necessary level of care. Continue current care otherwise. 12/07/17- PT doing well- Continue current care 12/08/17- Some issues with sleep. Continue current care Plan - 12/08/17 Kyle continues to have issues with sleep but no behaviors. Continue psychiatric care per Dr. Tamez and team. Continue to provide safe and supportive environment. Blood sugars variable, but fairly well controlled. Continue to monitor closely. Will recheck labs in AM to monitor blood counts, electrolytes and renal function. 12/09/17 Psych: Continue current care; awaiting response from [facility] in regards to placement as patient cannot safely discharge back to living independently at home. 12/10/17 Psych: Continue current care while attempting to finalize safe discharge plan for patient. Patient requires 24/7 supervision for safety and medication management, assistance with meals and cares. It would not be safe to discharge patient back to home until a higher level of care can be arranged. Plan - 12/11/17 Kyle continues to make slow gains. Continue psychiatric care per Dr. Tamez and team. Anticipate discharge in near future - awaiting acceptance from [facility]. Recent labs on 12/09/17 were unremarkable. Blood sugars relatively well controlled. Continue to provide safe and supportive environment. Vital signs stable. Continue to monitor. Continue current plan of care.
--- NOTE | 2017-12-11 16:18 | Neuropsych Progress Note ---
[facility] Subjective Date: 12/12/17 - Sujective/Severity of Illness Medications: Allopurinol (Zyloprim) 300 mg PO DAILY [facility] Last Admin: 12/11/17 08:09 Dose: 300 mg Aspirin (Ecotrin) 81 mg PO DAILY [facility] Last Admin: 12/11/17 08:09 Dose: 81 mg Cyanocobalamin (Vit. B-12) 1,000 mcg PO DAILY [facility] Last Admin: 12/11/17 08:09 Dose: 1,000 mcg Donepezil HCl (Aricept) 5 mg PO HS [facility] Last Admin: 12/11/17 00:06 Dose: Not Given Glimepiride (Amaryl) 1 mg PO BIDWM [facility] Last Admin: 12/11/17 08:09 Dose: 1 mg Glucose (Glutose 15) 37.5 gm PO PRN PRN PRN Reason: Hypoglycemia Haloperidol (Haldol) 0.5 mg PO Q6H PRN PRN Reason: Extreme agitation Haloperidol Lactate (Haldol) 0.5 mg IM Q6H PRN PRN Reason: Extreme agitation Ibuprofen (Motrin) 200 mg PO Q6HR PRN Insulin Aspart (Novolog) 1 - 5 unit SQ SS PRN; Protocol PRN Reason: Hyperglycemia Last Admin: 12/09/17 20:22 Dose: 1 unit Lisinopril (Prinivil) 20 mg PO DAILY [facility] Last Admin: 12/11/17 08:10 Dose: 20 mg Lorazepam (Ativan) 0.5 mg PO Q6H PRN PRN Reason: Extreme agitation Lorazepam (Ativan Inj) 0.5 mg IM Q6H PRN PRN Reason: Extreme agitation Metformin HCl (Glucophage) 1,000 mg PO BIDBS [facility] Last Admin: 12/11/17 08:09 Dose: 1,000 mg Subjective: Patient seen and chart reviewed. Case discussed with treatment team. On interview, patient is pleasant. He reports his mood is "happy" and he feels well physically. Patient denies any SI, HI or AVH. Patient denies any adverse side effects related to psychotropic medications. Nursing staff report patient has been pleasant and cooperative, without significant behavioral difficulties on the unit. He continues to have word- finding difficulties frequently. Patient has been adherent with medications. Patient slept well overnight. VSS. Patient is eating well. Psychotropic PRNs required in the past 24 hours: none. [facility] has declined patient; attempting to find safe discharge arrangements with DPOA. Start Time: 11:00 Stop Time: 11:20 Mental Status Exam Vitals: Last Vital Signs Temp 97.4 F 12/11/17 07:50 Pulse 72 12/11/17 07:50 Resp 16 12/11/17 07:50 BP 118/66 12/11/17 07:50 Pulse Ox 99 12/11/17 07:50 Height: 1.65 m Weight: 91.4 kg - Mental Status Exam Muscle Strength/Tone: Normal Dressing: Casual Grooming: Good Attitude: Cooperative Motor Activity: Retardation Eye Contact: Good Speech: Slowed Volume: Normal Rhythm: Other (Expressive aphasia, word-finding diffiulties) Orientation: Disoriented to time, Disoriented to place, Disoriented to situation , Oriented to person Mood: Euthymic Rate of Thoughts: Delayed Thought Organization: Confused Associations: Intact (makes general statements to cover for poor memory) Abstract Reasoning: Impaired, concrete Thought Content: Normal Perception/Psychotic: Perception Normal Language: Naming Impaired Fund of Knowledge: Poor fund of knowledge Memory: Poor-immediate, Poor-recent, Poor-remote Suicidal Ideation: Denies Homicidal Ideation: Denies Insight: Limited Judgement: Limited Impulse Control: Good - Laboratory Result Diagrams: 12/09/17 08:35 12/09/17 08:35 Laboratory Results - last 24 hr 12/10/17 12/10/17 12/10/17 11:22 14:06 21:23 Glucometer 141 167 80 12/11/17 12/11/17 12/11/17 06:35 10:11 14:10 Glucometer 91 206 141 Assessment and Plan (1) Major neurocognitive disorder Problem details: due to Alzheimer's, moderate, without behavioral disturbance, with expressive aphasia Current visit: Yes Status: Acute (2) Self-care deficit for medication management Problem details: secondary to progressive dementia as above Current visit: Yes Status: Acute (3) Hypertension Current visit: Yes Status: Acute (4) DMII (diabetes mellitus, type 2) 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 Hospital Course Summary Disclaimer: The visit summary below is not to be considered part of the above Progress Note. Hospital Course: Plan - 12/03/17 (Admission) Agree with admission to [facility] for psychiatric evaluation and treatment. Hospitalist service consulted for medical management. Provide safe and supportive cares with PRN medications as indicated per Dr. Tamez and team. Continue home medications. Med reconciliation noted to be missing home Amaryl. Will start Amaryl 1mg po BID for treatment of his DM. A1c in 09/2017 was elevated at 7.2 per prior records. Monitor BGMs closely. Sliding scale insulin PRN as indicated and monitor closely for hypoglycemia. Continue home lisinopril for hypertension - blood pressure controlled and will continue to monitor. Labs obtained on admission revealed mild amenia - hgb 13.3. B12 and folate pending. Recommend completing admission work up including CXR, CT head, TSH, UA and prealbumin. Will monitor labs periodically throughout admission. Upon discharge, patient's care will be returned to PCP, Dr. Osbaldo Fernández. Psych 12/06/16: Message left for DPOA in regards to starting Namenda in addition to Aricept. SW working with DPOA in regards to placement options for necessary level of care. Continue current care otherwise. 12/07/17- PT doing well- Continue current care 12/08/17- Some issues with sleep. Continue current care Plan - 12/08/17 Kyle continues to have issues with sleep but no behaviors. Continue psychiatric care per Dr. Tamez and team. Continue to provide safe and supportive environment. Blood sugars variable, but fairly well controlled. Continue to monitor closely. Will recheck labs in AM to monitor blood counts, electrolytes and renal function. 12/09/17 Psych: Continue current care; awaiting response from [facility] in regards to placement as patient cannot safely discharge back to living independently at home. 12/10/17 Psych: Continue current care while attempting to finalize safe discharge plan for patient. Patient requires 24/7 supervision for safety and medication management, assistance with meals and cares. It would not be safe to discharge patient back to home until a higher level of care can be arranged. Plan - 12/11/17 Kyle continues to make slow gains. Continue psychiatric care per Dr. Tamez and team. Anticipate discharge in near future - awaiting acceptance from [facility]. Recent labs on 12/09/17 were unremarkable. Blood sugars relatively well controlled. Continue to provide safe and supportive environment. Vital signs stable. Continue to monitor. Continue current plan of care. 12/11/17 Psych: Continue current care while safe discharge plans are finalized.
[2017-12-12] MEDS: GLIMEPIRIDE 1 MG TABLET PO SCH ×2 (08:00→17:01)
[2017-12-12] MEDS: ALLOPURINOL 300 MG TABLET PO SCH (08:00)
[2017-12-12] MEDS: CYANOCOBALAMIN (B-12) 500mcg TABLET PO SCH (08:00)
[2017-12-12] MEDS: LISINOPRIL 20 MG TABLET PO SCH (08:00)
[2017-12-12] MEDS: ASPIRIN *EC* 81 MG TABLET PO SCH (08:00)
[2017-12-12] MEDS: METFORMIN 1,000 MG TABLET PO SCH ×2 (08:00→17:01)
--- NOTE | 2017-12-12 13:34 | Neuropsych Progress Note ---
[facility] Subjective Date: 12/12/17 - Sujective/Severity of Illness Medications: Allopurinol (Zyloprim) 300 mg PO DAILY [facility] Last Admin: 12/12/17 08:00 Dose: 300 mg Aspirin (Ecotrin) 81 mg PO DAILY [facility] Last Admin: 12/12/17 08:00 Dose: 81 mg Cyanocobalamin (Vit. B-12) 1,000 mcg PO DAILY [facility] Last Admin: 12/12/17 08:00 Dose: 1,000 mcg Donepezil HCl (Aricept) 5 mg PO HS [facility] Last Admin: 12/11/17 20:05 Dose: 5 mg Glimepiride (Amaryl) 1 mg PO BIDWM [facility] Last Admin: 12/12/17 08:00 Dose: 1 mg Glucose (Glutose 15) 37.5 gm PO PRN PRN PRN Reason: Hypoglycemia Haloperidol (Haldol) 0.5 mg PO Q6H PRN PRN Reason: Extreme agitation Haloperidol Lactate (Haldol) 0.5 mg IM Q6H PRN PRN Reason: Extreme agitation Ibuprofen (Motrin) 200 mg PO Q6HR PRN Insulin Aspart (Novolog) 1 - 5 unit SQ SS PRN; Protocol PRN Reason: Hyperglycemia Last Admin: 12/09/17 20:22 Dose: 1 unit Lisinopril (Prinivil) 20 mg PO DAILY [facility] Last Admin: 12/12/17 08:00 Dose: 20 mg Lorazepam (Ativan) 0.5 mg PO Q6H PRN PRN Reason: Extreme agitation Lorazepam (Ativan Inj) 0.5 mg IM Q6H PRN PRN Reason: Extreme agitation Metformin HCl (Glucophage) 1,000 mg PO BIDBS [facility] Last Admin: 12/12/17 08:00 Dose: 1,000 mg Subjective: Patient seen and chart reviewed. Case discussed with treatment team. On interview, patient is pleasant. He reports his mood is "as happy as can be" and he feels well physically. He enjoys socializing with other males on the unit. Patient denies any SI, HI or AVH. Patient denies any adverse side effects related to psychotropic medications. Nursing staff report patient has been pleasant and cooperative, without significant behavioral difficulties on the unit. He continues to have word- finding difficulties frequently. Patient has been adherent with medications. Patient slept 7.25 overnight. VSS. Patient is eating well. Psychotropic PRNs required in the past 24 hours: none. Finalizing discharge arrangements with DPOA today; plan to discharge 12/13. Start Time: 09:20 Stop Time: 09:40 Mental Status Exam Vitals: Last Vital Signs Temp 97.6 F 12/12/17 08:00 Pulse 78 12/12/17 08:00 Resp 16 12/12/17 08:00 BP 130/66 12/12/17 08:00 Pulse Ox 96 12/12/17 08:00 Height: 1.65 m Weight: 91.4 kg - Mental Status Exam Muscle Strength/Tone: Normal Dressing: Casual Grooming: Good Attitude: Cooperative Motor Activity: Retardation Eye Contact: Good Speech: Slowed Volume: Normal Rhythm: Other (Expressive aphasia, word-finding diffiulties) Orientation: Disoriented to time, Disoriented to place, Disoriented to situation , Oriented to person Mood: Euthymic Rate of Thoughts: Delayed Thought Organization: Confused Associations: Intact (makes general statements to cover for poor memory) Abstract Reasoning: Impaired, concrete Thought Content: Normal Perception/Psychotic: Perception Normal Language: Naming Impaired Fund of Knowledge: Poor fund of knowledge Memory: Poor-immediate, Poor-recent, Poor-remote Suicidal Ideation: Denies Homicidal Ideation: Denies Insight: Limited Judgement: Limited Impulse Control: Good - Laboratory Result Diagrams: 12/09/17 08:35 12/09/17 08:35 Laboratory Results - last 24 hr 12/11/17 14:10 Glucometer 141 Assessment and Plan (1) Major neurocognitive disorder Problem details: due to Alzheimer's, moderate, without behavioral disturbance, with expressive aphasia Current visit: Yes Status: Acute (2) Self-care deficit for medication management Problem details: secondary to progressive dementia as above Current visit: Yes Status: Acute (3) Hypertension Current visit: Yes Status: Acute (4) DMII (diabetes mellitus, type 2) 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 Hospital Course Summary Disclaimer: The visit summary below is not to be considered part of the above Progress Note. Hospital Course: Plan - 12/03/17 (Admission) Agree with admission to [facility] for psychiatric evaluation and treatment. Hospitalist service consulted for medical management. Provide safe and supportive cares with PRN medications as indicated per Dr. Tamez and team. Continue home medications. Med reconciliation noted to be missing home Amaryl. Will start Amaryl 1mg po BID for treatment of his DM. A1c in 09/2017 was elevated at 7.2 per prior records. Monitor BGMs closely. Sliding scale insulin PRN as indicated and monitor closely for hypoglycemia. Continue home lisinopril for hypertension - blood pressure controlled and will continue to monitor. Labs obtained on admission revealed mild amenia - hgb 13.3. B12 and folate pending. Recommend completing admission work up including CXR, CT head, TSH, UA and prealbumin. Will monitor labs periodically throughout admission. Upon discharge, patient's care will be returned to PCP, Dr. Osbaldo Fernández. Psych 12/06/16: Message left for DPOA in regards to starting Namenda in addition to Aricept. SW working with DPOA in regards to placement options for necessary level of care. Continue current care otherwise. 12/07/17- PT doing well- Continue current care 12/08/17- Some issues with sleep. Continue current care Plan - 12/08/17 Kyle continues to have issues with sleep but no behaviors. Continue psychiatric care per Dr. Tamez and team. Continue to provide safe and supportive environment. Blood sugars variable, but fairly well controlled. Continue to monitor closely. Will recheck labs in AM to monitor blood counts, electrolytes and renal function. 12/09/17 Psych: Continue current care; awaiting response from [facility] in regards to placement as patient cannot safely discharge back to living independently at home. 12/10/17 Psych: Continue current care while attempting to finalize safe discharge plan for patient. Patient requires 24/7 supervision for safety and medication management, assistance with meals and cares. It would not be safe to discharge patient back to home until a higher level of care can be arranged. Plan - 12/11/17 Kyle continues to make slow gains. Continue psychiatric care per Dr. Tamez and team. Anticipate discharge in near future - awaiting acceptance from [facility]. Recent labs on 12/09/17 were unremarkable. Blood sugars relatively well controlled. Continue to provide safe and supportive environment. Vital signs stable. Continue to monitor. Continue current plan of care. 12/11/17 Psych: Continue current care while safe discharge plans are finalized. 12/12/17 Psych: Finalizing discharge arrangements with DPOA today; plan to discharge 12/13.
[2017-12-12] MEDS: DONEPEZIL 5 MG TABLET PO SCH (20:06)
[2017-12-13] MEDS: METFORMIN 1,000 MG TABLET PO SCH (08:49)
[2017-12-13] MEDS: GLIMEPIRIDE 1 MG TABLET PO SCH (08:49)
[2017-12-13] MEDS: ALLOPURINOL 300 MG TABLET PO SCH (08:49)
[2017-12-13] MEDS: ASPIRIN *EC* 81 MG TABLET PO SCH (08:50)
[2017-12-13] MEDS: LISINOPRIL 20 MG TABLET PO SCH (08:50)
[2017-12-13] MEDS: CYANOCOBALAMIN (B-12) 500mcg TABLET PO SCH (08:50)
--- NOTE | 2017-12-13 09:49 | Extended Care Facility Orders ---
Admission Orders Admit to:: [facility] Allergies/Adverse Reactions: Allergies No Known Allergies Allergy (Verified 12/02/17 19:59) Admitting Diagnosis: self care failure Admitting Physician: Mariah Tamez MD Attending Physician: Mariah Tamez MD Code Status: Full Code Anticiapted Length of Stay: greater than 30 days Rehab Potential: fair Rehab Prognosis: fair Diet: 12/03/17 Dinner Cardiac Consistent Carbohydrate Diet [DIET] Calorie Level: 2200 Sodium Restriction: 2GRAM Fat Content: LOW Wound/Incision Care: N/A May use Facility Protocol or Standing Orders: Yes May have flu vaccine: Yes Evaluations/Treatment: Psychiatric, as needed Alf Certification: I certify that SNF services are required to be given on an Inpatient basis because of the patients need for jail care on a continuing basis for the condition(s) for which he/she received inpatient hospital services prior to his/her transfer to the SNF. SNF inpatient care is necessary for the following reasons Indication for Alf: Not Applicable - Additional Information In Event of Arrest: Do Not Start CPR Resident is Aware of Diagnosis: Yes Referrals: Osbaldo Fernández MD [Physician] - (Dr. Candelaria Fernández on 12/17/17 at 11:00 am for Hosp. follow-up. [facility] [address] [address] Patient will be seen on rounds for Mental Health follow-up.)
[2017-12-13 10:10] VITALS: RESP 16
[2017-12-13] MEDS: INSULIN ASPART 100unit/ml INJECTION SQ PRN ×2 (12:38→15:10)
--- NOTE | 2017-12-13 14:22 | Neuropsych Progress Note ---
[facility] Subjective Date: 12/13/17 - Sujective/Severity of Illness Medications: Allopurinol (Zyloprim) 300 mg PO DAILY [facility] Last Admin: 12/13/17 08:49 Dose: 300 mg Aspirin (Ecotrin) 81 mg PO DAILY [facility] Last Admin: 12/13/17 08:50 Dose: 81 mg Cyanocobalamin (Vit. B-12) 1,000 mcg PO DAILY [facility] Last Admin: 12/13/17 08:50 Dose: 1,000 mcg Donepezil HCl (Aricept) 5 mg PO HS [facility] Last Admin: 12/12/17 20:06 Dose: 5 mg Glimepiride (Amaryl) 1 mg PO BIDWM [facility] Last Admin: 12/13/17 08:49 Dose: 1 mg Glucose (Glutose 15) 37.5 gm PO PRN PRN PRN Reason: Hypoglycemia Haloperidol (Haldol) 0.5 mg PO Q6H PRN PRN Reason: Extreme agitation Haloperidol Lactate (Haldol) 0.5 mg IM Q6H PRN PRN Reason: Extreme agitation Ibuprofen (Motrin) 200 mg PO Q6HR PRN Insulin Aspart (Novolog) 1 - 5 unit SQ SS PRN; Protocol PRN Reason: Hyperglycemia Last Admin: 12/13/17 12:38 Dose: 1 unit Lisinopril (Prinivil) 20 mg PO DAILY [facility] Last Admin: 12/13/17 08:50 Dose: 20 mg Lorazepam (Ativan) 0.5 mg PO Q6H PRN PRN Reason: Extreme agitation Lorazepam (Ativan Inj) 0.5 mg IM Q6H PRN PRN Reason: Extreme agitation Metformin HCl (Glucophage) 1,000 mg PO BIDBS [facility] Last Admin: 12/13/17 08:49 Dose: 1,000 mg Subjective: Patient seen and chart reviewed. Case discussed with treatment team. On interview, patient is pleasant. He reports his mood is "as happy as can be" and he feels well physically. He enjoys socializing with other males on the unit. Patient denies any SI, HI or AVH. Patient denies any adverse side effects related to psychotropic medications. Nursing staff report patient has been pleasant and cooperative, without significant behavioral difficulties on the unit. He continues to have word- finding difficulties frequently. Patient has been adherent with medications. Patient slept 7.25 overnight. VSS. Patient is eating well. Psychotropic PRNs required in the past 24 hours: none. Finalizing discharge arrangements with DPOA today; plan to discharge 12/13. Mental Status Exam Vitals: Last Vital Signs Temp 97.3 F 12/13/17 08:00 Pulse 80 12/13/17 08:00 Resp 16 12/13/17 08:00 BP 123/63 12/13/17 08:00 Pulse Ox 99 12/13/17 08:00 Height: 1.65 m Weight: 91.4 kg - Mental Status Exam Muscle Strength/Tone: Normal Dressing: Casual Grooming: Good Attitude: Cooperative Motor Activity: Retardation Eye Contact: Good Speech: Slowed Volume: Normal Rhythm: Other (Expressive aphasia, word-finding diffiulties) Orientation: Disoriented to time, Disoriented to place, Disoriented to situation , Oriented to person Mood: Euthymic Rate of Thoughts: Delayed Thought Organization: Confused Associations: Intact (makes general statements to cover for poor memory) Abstract Reasoning: Impaired, concrete Thought Content: Normal Perception/Psychotic: Perception Normal Language: Naming Impaired Fund of Knowledge: Poor fund of knowledge Memory: Poor-immediate, Poor-recent, Poor-remote Suicidal Ideation: Denies Homicidal Ideation: Denies Insight: Limited Judgement: Limited Impulse Control: Good - Laboratory Result Diagrams: 12/09/17 08:35 12/09/17 08:35 Laboratory Results - last 24 hr 12/12/17 12/12/17 12/12/17 10:00 10:51 14:35 Glucometer 265 170 129 12/12/17 12/13/17 12/13/17 20:38 05:37 10:27 Glucometer 90 83 194 Assessment and Plan (1) Major neurocognitive disorder Problem details: due to Alzheimer's, moderate, without behavioral disturbance, with expressive aphasia Current visit: Yes Status: Acute (2) Self-care deficit for medication management Problem details: secondary to progressive dementia as above Current visit: Yes Status: Acute (3) Hypertension Current visit: Yes Status: Acute (4) DMII (diabetes mellitus, type 2) 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 Hospital Course: Plan - 12/03/17 (Admission) Agree with admission to [facility] for psychiatric evaluation and treatment. Hospitalist service consulted for medical management. Provide safe and supportive cares with PRN medications as indicated per Dr. Tamez and team. Continue home medications. Med reconciliation noted to be missing home Amaryl. Will start Amaryl 1mg po BID for treatment of his DM. A1c in 09/2017 was elevated at 7.2 per prior records. Monitor BGMs closely. Sliding scale insulin PRN as indicated and monitor closely for hypoglycemia. Continue home lisinopril for hypertension - blood pressure controlled and will continue to monitor. Labs obtained on admission revealed mild amenia - hgb 13.3. B12 and folate pending. Recommend completing admission work up including CXR, CT head, TSH, UA and prealbumin. Will monitor labs periodically throughout admission. Upon discharge, patient's care will be returned to PCP, Dr. Osbaldo Fernández. Psych 12/06/16: Message left for DPOA in regards to starting Namenda in addition to Aricept. SW working with DPOA in regards to placement options for necessary level of care. Continue current care otherwise. 12/07/17- PT doing well- Continue current care 12/08/17- Some issues with sleep. Continue current care Plan - 12/08/17 Kyle continues to have issues with sleep but no behaviors. Continue psychiatric care per Dr. Tamez and team. Continue to provide safe and supportive environment. Blood sugars variable, but fairly well controlled. Continue to monitor closely. Will recheck labs in AM to monitor blood counts, electrolytes and renal function. 12/09/17 Psych: Continue current care; awaiting response from [facility] in regards to placement as patient cannot safely discharge back to living independently at home. 12/10/17 Psych: Continue current care while attempting to finalize safe discharge plan for patient. Patient requires 24/7 supervision for safety and medication management, assistance with meals and cares. It would not be safe to discharge patient back to home until a higher level of care can be arranged. Plan - 12/11/17 Kyle continues to make slow gains. Continue psychiatric care per Dr. Tamez and team. Anticipate discharge in near future - awaiting acceptance from [facility]. Recent labs on 12/09/17 were unremarkable. Blood sugars relatively well controlled. Continue to provide safe and supportive environment. Vital signs stable. Continue to monitor. Continue current plan of care. 12/11/17 Psych: Continue current care while safe discharge plans are finalized. 12/12/17 Psych: Finalizing discharge arrangements with [facility]PO[facility] today; plan to discharge 12/13.
[2017-12-13 16:03] VITALS: BP 99/58; PULSE 73; TEMP 96.8; O2SAT 98
== END 2017-12-13 16:45 | DRG 57 ==
LOC: ED 17:16 → GEN 21:48
PROVIDERS: ADMIT Psychiatry & Neurology Psychiatry; ATTEND Psychiatry & Neurology Psychiatry